=== PATIENT | female | born 1950 | race Caucasian/White ===

== ENCOUNTER 2019-02-14 10:32 | Emergency (ER) | payer MEDICARE, MEDICAID, SELFPAY ==
--- NOTE | ~2019-02-14 | XR_ITS ---
EXAMINATION: XR chest 2V EXAM DATE: 02/14/2019 11:00 INDICATION: Shortness of air. TECHNIQUE: Frontal and lateral projections of the chest obtained and reviewed. There is no prior janice dy for comparison. FINDINGS: There is patchy left-sided airspace disease, either edema or pneumonia. Please clinically correlate. Coronary artery stents identified. There is no pneumothorax suspected. There are no pleura l effusions. The cardiomediastinal silhouette is prominent but magnified on this AP technique. There are no osseous abnormalities identified. IMPRESSION: 1. Patchy left sided edema or pneumonia. Reviewed, dictated and finalized at location A. 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
[2019-02-14 10:31] VITALS: BP 154/62; PULSE 64; RESP 18; TEMP 36.6; O2SAT 92
--- NOTE | 2019-02-14 10:38 | ED.WOUNDLAC ---
HPI - Wound/Laceration General Chief Complaint: Wound/Laceration Stated Complaint: wound Time Seen by Provider: 02/14/19 10:38 Source: patient and EMS Mode of arrival: EMS Limitations: no limitations History of Present Illness HPI narrative: The pt is a 68 y/o female who presents to the ED, via EMS, c/o a RLE wound onset one week ago. Pt presents from [facility]. Per EMS, pt had a blister that was noticed while being bathed, but this popped over night. Pt reports RLE pain, but denies SOB, BLE edema, rhinorrhea, and cough. Pt has a PMHx of DM, heart murmur, and AFIB. EMS states that the pt has previously seen wound care for other wounds. Onset (ago): week(s) (1) Location: other (RLE) Extremity Location: Right: lower leg Place: other (Assisted living facility ([facility])) Associated symptoms: other (RLE pain, RLE blister (Resolved)) Related Data Home Medications Medication Instructions Recorded Confirmed alendronate 70 mg PO WEEKLY 02/14/19 amiodarone 200 mg PO DAILY 02/14/19 amlodipine 5 mg PO DAILY 02/14/19 benzonatate 200 mg PO TID PRN 02/14/19 clopidogrel 75 mg PO DAILY 02/14/19 ergocalciferol (vitamin D2) 50,000 unit PO WEEKLY 02/14/19 [Vitamin D2] ferrous sulfate 325 mg PO DAILY 02/14/19 furosemide 20 mg PO DAILY 02/14/19 gabapentin 300 mg PO TID 02/14/19 insulin lispro protamin-lispro ml SUBCUT BID 02/14/19 [Humalog Mix 75-25(U-100)Insuln] magnesium oxide 400 mg PO BID 02/14/19 omeprazole 40 mg PO DAILY 02/14/19 rivaroxaban [Xarelto] 20 mg PO QPM 02/14/19 rosuvastatin 40 mg PO DAILY 02/14/19 tizanidine 4 mg PO HS 02/14/19 tramadol 50 mg PO Q6H PRN 02/14/19 valsartan 320 mg PO DAILY 02/14/19 vitamin B complex [B tablet 02/14/19 Complex-Vitamin B12] Allergies Allergy/AdvReac Type Severity Reaction Status Date / Time No Known Allergies Allergy Verified 02/14/19 10:45 Review of Systems Review of Systems: All systems reviewed & are unremarkable except as noted in HPI and below ENT: Denies nasal discharge (Rhinorrhea) Cardiovascular: Cardiovascular: Denies edema (BLE) Respiratory: Respiratory: Denies cough and Denies dyspnea Musculoskeletal: Musculoskeletal: Reports other (RLE pain) Integumentary/Breasts: Skin/Breast: Reports wounds (RLE) and Reports other (RLE blister (Resolved)) [facility] Past Medical History Medical History (Updated 02/14/19 @ 13:21 by Wei Willett MD) Afib (Acute) Diabetes mellitus (Acute) Heart murmur (Acute) Surgical History Surgical History (Updated 02/14/19 @ 10:47 by Rangel Tai) No history of previous surgery (Acute) Social History Social History (Updated 02/14/19 @ 10:46 by Rangel Tai) Living arrangements: assisted living Additional living arrangements comments: Pt lives at the [facility]. Gender identity (if verbalized by the patient): Female Exam Narrative: Exam Narrative: GENERAL: Well-appearing, well-nourished, and in no acute distress. HEAD: Normocephalic, atraumatic. ENT: Mucous membranes moist. CHEST: Clear to auscultation. No respiratory distress. HEART: Regular rate and rhythm. Normal peripheral pulses. ABDOMEN: Soft, nontender, nondistended. EXTREMITIES: Normal range of motion. 2+ edema. Weeping ulceration of the right anterior hernandez, about 10 cm x 6cm, no purulence, no cellulitis. SKIN: Warm, dry, no rash. NEURO: Alert and oriented x3. Course Course Emergency Course: Patient informed of results. Discharge with doxycycline for pneumonia and skin coverage. Wound dressed. Recommend follow-up with PCP and wound care. Vital Signs Vital signs: Vital Signs Temperature 97.9 F 02/14/19 10:31 Pulse Rate 64 02/14/19 10:31 Respiratory Rate 18 02/14/19 10:31 Blood Pressure 154/62 H 02/14/19 10:31 Pulse Oximetry 92 L 02/14/19 10:31 Temperature 98.1 F 02/14/19 12:20 Pulse Rate 64 02/14/19 12:20 Respiratory Rate 20 02/14/19 12:20 Blood Pressure 145/70 H 11
[2019-02-14 11:51] LABS: Basophils Absolute Auto 0.1 K/mm3 (0.0-0.1); Eosinophils Absolute Auto 0.3 K/mm3 (0-0.3); Eosinophils Percent Auto 2.6 % (0-4.4); Hematocrit 44.5 % (37.0-47.0); Hemoglobin 13.5 g/dL (12.0-15.0); Immature Granulocyte Absolute 0.05 K/mm3 (0.00-0.031); Immature Granulocyte Percent A 0.5 % (0-0.5); Immature Platelet Fraction Pct 5.1 % (0.9-11.2); Lymphocytes Absolute Auto 1.36 K/mm3 (0.9-3.2); Lymphocytes Percent Auto 12.9 % (18.3-44.2); Mean Corpuscular HGB Conc 30.3 g/dl (32-36); Mean Corpuscular Hemoglobin 25.8 pg (26-34); Mean Corpuscular Volume 85.1 fl (80-100); Mean Platelet Volume 10.3 fl (7.4-10.4); Monocytes Absolute Auto 0.7 K/mm3 (0.1-0.6); Monocytes Percent Auto 6.6 % (2.6-8.5); Neutrophils Absolute Auto 8.1 K/mm3 (1.3-6.7); Neutrophils Percent Auto 76.4 % (45.5-73.1); Platelet Count Result 257 k/mm3 (150-375); Red Blood Count 5.23 M/mm3 (4.2-5.4); Red Cell Distribution Width 18.7 % (11.5-14.5); White Blood Count 10.5 K/mm3 (4.5-10.0)
[2019-02-14 12:00] LABS: Blood Urea Nitrogen 21 mg/dL (7-17); Calcium 9.7 mg/dL (8.4-10.2); Carbon Dioxide 31 mmol/L (22-30); Chloride 101 mmol/L (98-107); Estimated CRCL calculation 51 ml/min; Estimated Glomerular Filt Rate 50; Glucose 252 mg/dL (65-105); Potassium 4.3 mmol/L (3.4-5.0); Sodium 136 mmol/L (137-145)
[2019-02-14 12:14] LABS: NT Pro B Type Natriuretic Pept 184 PG/ML (5-100)
[2019-02-14 12:20] VITALS: BP 145/70; PULSE 64; RESP 20; TEMP 36.7; O2SAT 95
[2019-02-14 12:22] VITALS: O2SAT 95
[2019-02-14 13:53] VITALS: BP 142/88; PULSE 80; RESP 18; TEMP 36.9; O2SAT 99
== END 2019-02-14 13:55 | disposition home or self-care (01) ==
PROVIDERS: Emergency Provider Emergency Medicine; PCP Internal Medicine
DX: L98.491 Non-pressure chronic ulcer of skin of other sites limited to breakdown of skin (principal); J18.9 Pneumonia, unspecified organism; I48.91 Unspecified atrial fibrillation; E11.9 Type 2 diabetes mellitus without complications; Z79.4 Long term (current) use of insulin; Z79.01 Long term (current) use of anticoagulants
CPT/HCPCS: 36415; 71046; 80048; 83880; 85025; 99283

== ENCOUNTER 2019-12-11 16:14 | Inpatient (IN) | payer MEDICARE, MEDICAID, SELFPAY ==
--- NOTE | ~2019-12-11 | CT_ITS ---
EXAMINATION: CT abdomen pelvis wo con DATE: 12/11/2019 19:01 INDICATION: Abdominal pain. Nausea. TECHNIQUE: Computed tomography (CT) of the abdomen and pelvis was performed without intravenous contr ast. Automated exposure control and iterative reconstruction technique were employed. The dose-length product was 1496.00 mGy-cm. COMPARISON: CT abdomen and pelvis 07/20/2018 FINDINGS: The visualized portions of the lung bases demonstrate mild atelectasis. No pleural effusion . Cardiomegaly is noted. There are coronary artery calcifications. No pericardial effusion. The liver and spleen are normal. There are gallstones in the gallbladder, which is normal in size. The pancrea s, adrenal glands, and right kidney are normal. There is cortical thinning of left kidney. There is n o urolithiasis. There is a 7 mm cyst in left kidney. There is diverticulosis of the colon without jazz dence of diverticulitis. There are no dilated loops of bowel. The appendix is normal. There is an umb ilical hernia containing fat. There are no pathologically enlarged lymph nodes. There is no free intr aperitoneal fluid. There is lumbar levoscoliosis. There is severe thoracolumbar spondylosis. IMPRESSION: 1. Cholelithiasis. No evidence of acute cholecystitis. 2. Umbilical hernia containing fat. Reviewed, dictated and finalized at location A.
--- NOTE | ~2019-12-11 | XR_ITS ---
EXAMINATION: XR chest 1V portable DATE: 12/11/2019 17:22 INDICATION: Fever. TECHNIQUE: A single frontal view of the chest was obtained. COMPARISON: Chest 2 views 04/11/2019, CT abdomen and pelvis 07/12/2018 FINDINGS: There is no pneumonia, pleural effusion, or pneumothorax. Cardiomegaly is noted. IMPRESSION: 1. Cardiomegaly. Reviewed, dictated and finalized at location A. IMPRESSION: 1. Cardiomegaly.
--- NOTE | ~2019-12-11 | US_ITS ---
US right upper quadrant DATE: 12/12/2019 07:46 INDICATION: Right upper quadrant abdominal pain TECHNIQUE: Real-time imaging of liver, pancreas, gallbladder areas. Examination is limited due to bod y habitus and bowel interference COMPARISON: 12/11/2019 CT abdomen pelvis FINDINGS: The pancreatic tail is obscured by bowel gas. No hepatic space-occupying mass lesion is jazz dent. Normal hepatic portal venous flow direction. No hepatic space-occupying mass lesion is evident. There are small filling defects of the gallbladder, consistent with cholelithiasis. No gallbladder wa ll thickening. The common bile duct measures 4.9 mm, within normal limits. IMPRESSION: Cholelithiasis Reviewed, dictated and finalized at Location A. Reviewed, dictated and finalized at location A. IMPRESSION: Cholelithiasis
--- NOTE | ~2019-12-11 | XR_ITS ---
EXAMINATION: XR chest 1V portable DATE: 12/17/2019 05:41 INDICATION: Shortness of breath. TECHNIQUE: A single frontal view of the chest was obtained. COMPARISON: Chest single view 12/11/2019, CT abdomen and pelvis 12/11/2019 FINDINGS: There are airspace opacities in the mid and lower lung zones with a perihilar predominance. No pleural effusion or pneumothorax. Cardiomegaly is noted. IMPRESSION: 1. Airspace opacities in the mid and lower lung zones with a perihilar predominance, consistent with pneumonia versus pulmonary edema. 2. Cardiomegaly. Reviewed, dictated and finalized at location A. IMPRESSION: 1. Airspace opacities in the mid and lower lung zones with a perihilar predomin ance, consistent with pneumonia versus pulmonary edema. 2. Cardiomegaly.
[2019-12-11 16:26] VITALS: BP 146/93; PULSE 79; RESP 18; TEMP 37; O2SAT 89
[2019-12-11 16:30] VITALS: PULSE 78; RESP 20; O2SAT 95
--- NOTE | 2019-12-11 16:55 | ED.FEVER ---
HPI - Fever General Chief Complaint: Fever Stated Complaint: fever Source: patient and old records reviewed Mode of arrival: EMS Limitations: other (Poor historian) History of Present Illness HPI Narrative: 69-year-old female Presents from [facility] Complains of chills for about an hour She has nausea but has not vomited Was reported to be afebrile by the care home however temp per EMS and here are both normal She has no specific respiratory complaints but was said to have an oxygen requirement Her legs are wrapped due to sores per patient Appears to have a past medical history of coronary disease hypertension afib and type 2 diabetes [facility] paperwork indicates a DNR status Onset (ago): hour(s) Related Data Home Medications Medication Instructions Recorded Confirmed alendronate 70 mg tablet 70 mg PO WEEKLY 02/10/19 02/17/19 amlodipine 5 mg tablet 5 mg PO DAILY 02/10/19 02/17/19 clopidogrel 75 mg tablet 75 mg PO DAILY 02/10/19 02/17/19 ergocalciferol (vitamin D2) 1,250 50,000 unit PO MONTHLY 02/10/19 02/17/19 mcg (50,000 unit) capsule furosemide 20 mg tablet 20 mg PO QAM 02/10/19 02/17/19 gabapentin 300 mg capsule 300 mg PO TID 02/10/19 02/17/19 lancets #50 each 02/10/19 02/17/19 omeprazole 40 mg capsule,delayed 40 mg PO DAILY 02/10/19 02/17/19 release pen needle, diabetic 31 gauge x #30 each 02/10/19 02/17/19 1/ rivaroxaban 20 mg tablet 20 mg PO DAILY 02/10/19 02/17/19 rosuvastatin 40 mg tablet 40 mg PO DAILY 02/10/19 02/17/19 tramadol 50 mg tablet 50 mg PO Q6H PRN 02/10/19 02/17/19 alendronate 70 mg PO WEEKLY 02/14/19 amiodarone 200 mg PO DAILY 02/14/19 amlodipine 5 mg PO DAILY 02/14/19 benzonatate 200 mg PO TID PRN 02/14/19 clopidogrel 75 mg PO DAILY 02/14/19 ergocalciferol (vitamin D2) 50,000 unit PO WEEKLY 02/14/19 [Vitamin D2] ferrous sulfate 325 mg PO DAILY 02/14/19 furosemide 20 mg PO DAILY 02/14/19 gabapentin 300 mg PO TID 02/14/19 insulin lispro protamin-lispro ml SUBCUT BID 02/14/19 [Humalog Mix 75-25(U-100)Insuln] magnesium oxide 400 mg PO BID 02/14/19 omeprazole 40 mg PO DAILY 02/14/19 rivaroxaban [Xarelto] 20 mg PO QPM 02/14/19 rosuvastatin 40 mg PO DAILY 02/14/19 tizanidine 4 mg PO HS 02/14/19 tramadol 50 mg PO Q6H PRN 02/14/19 valsartan 320 mg PO DAILY 02/14/19 vitamin B complex [B tablet 02/14/19 Complex-Vitamin B12] insulin lispro protamine-lispro See Rx Instructions SUB-Q .COMPLEX 02/24/19 100 unit/mL (75-25) subcutaneous pen Allergies Allergy/AdvReac Type Severity Reaction Status Date / Time No Known Allergies Allergy Verified 07/14/19 13:26 Review of Systems Review of Systems: ROS unobtainable: Yes unobtainable due to mental status Constitutional: Constitutional: Reports chills, Reports fever(s), Denies headache(s) and Denies night sweats Eyes: Eyes: Denies loss of vision and Denies other visual disturbances ENT: Denies headache(s) and Denies hoarseness Cardiovascular: Cardiovascular: Denies leg edema, Denies palpitations and Denies dyspnea Respiratory: Respiratory: Reports dyspnea Gastrointestinal: Gastrointestinal: Denies abdominal pain, Denies diarrhea, Reports nausea and Denies vomiting Genitourinary: Genitourinary: Denies urinary frequency Musculoskeletal: Musculoskeletal: Denies abnormal gait, Denies deformity, Denies joint swelling, Denies muscle weakness and Denies numbness Integumentary/Breasts: Skin/Breast: Denies rash, Denies unusual bruising and Denies wounds Neurologic: Denies abnormal gait, Denies headache(s), Denies focal weakness, Denies loss of vision and Denies numbness Psychiatric: Psychiatric: Reports no additional psychiatric complaints Endocrine: Endocrine: Denies fatigue and Denies palpitations Hematologic/Lymphatic: Hematologic/Lymphatic: Denies easy bleeding and Denies easy bruising Allergic/Immunologic: Allergic/Immunologic: Denies wheezing PMFSH Social History Soci
[2019-12-11] MEDS: LACTATED RINGERS 1,000 ML 999 ML IV CONT (17:10)
[2019-12-11 17:13] LABS: Hematocrit 36.7 % (37.0-47.0); Hemoglobin 11.4 g/dL (12.0-15.0); Mean Corpuscular HGB Conc 31.1 g/dl (32-36); Mean Corpuscular Hemoglobin 26.5 pg (26-34); Mean Corpuscular Volume 85.3 fl (80-100); Mean Platelet Volume 11.1 fl (7.4-10.4); Platelet Count Result 317 k/mm3 (150-375); Red Cell Distribution Width 13.8 % (11.5-14.5); White Blood Count 20.1 K/mm3 (4.5-10.0)
[2019-12-11 17:25] LABS: Add Urine Microscopic? YES; Appearance Urine Clear (Clear); Bacteria Urine Trace /hpf; Bilirubin Urine Negative (Negative); Blood Urine 1+ (Negative); Color Urine Straw (Yellow); Glucose Urine UA Negative (Negative); INR 1.4; Ketones Urine Negative (Negative); Leukocyte Esterase Ur Negative LEU/UL (Negative); Mucus Urine Rare /lpf; Nitrate Urine Negative (Negative); Protein Urine 2+ mg/dL (Negative); Prothrombin Time 16.8 Seconds (11.1-14.7); RBC Urine 0-2 /hpf (0-2); Specific Grav Ur 1.011 (1.001-1.035); Squamous Epithelial Cell Urine Rare /hpf (Few); Urobilinogen Urine Negative mg/dL (<2.0); WBC Urine 0-3 /hpf
[2019-12-11 17:28] LABS: Alanine Aminotransferase 13 U/L (4-35); Albumin Level 4.2 g/dL (3.5-5.1); Alkaline Phosphatase 111 U/L (38-126); Anion Gap 9 mmol/L (8-16); Aspartate Amino Transferase 24 U/L (14-36); Bilirubin,Total 0.6 mg/dL (0.2-1.3); Blood Urea Nitrogen 46 mg/dL (7-17); Calcium 10.3 mg/dL (8.4-10.2); Carbon Dioxide 30 mmol/L (22-30); Chloride 95 mmol/L (98-107); Estimated CRCL calculation 29 ml/min; Estimated Glomerular Filt Rate 30; Glucose 236 mg/dL (65-105); Potassium 4.4 mmol/L (3.4-5.0); Sodium 134 mmol/L (137-145)
[2019-12-11 17:38] LABS: Band Neutrophils Percent 1 % (0-6); Monocytes Percent Manual 6 % (3-9); Neutrophils Absolute Manual 17.48 K/mm3 (1.7-7.2); Neutrophils Percent Manual 86 % (46-73); Platelet Estimate Adequate (Adequate); Total Cells Counted 100
[2019-12-11 17:39] LABS: Hypochromasia 1+ (NORMAL)
[2019-12-11 17:53] LABS: Lactic Acid Reflex 1.7 mmol/L (0.7-2.1)
[2019-12-11 18:25] VITALS: BP 187/76; PULSE 81; RESP 18; O2SAT 95
[2019-12-11 20:00] VITALS: BP 200/96; PULSE 76; RESP 26; O2SAT 93
[2019-12-11 22:20] VITALS: BMI 47.8
--- NOTE | 2019-12-11 22:20 | ADMGEN ---
This patient, Estefanía James, was admitted to [facility] Surg Room 329-01. Patient/family oriented to hospital policies and general routines including ID bracelet, bed and alarms, visiting hours, pain management, procedures, bathroom and other care routines, personal items, smoking policy, room service/diet, and visiting hours. Valuables list has been completed. Information on how to activate the Rapid Response Team has been discussed. Patient/Family are encouraged to report perceived risks to care and to ask questions if they do not understand what they are told or what they should do.
[2019-12-11] MEDS: metroNIDAZOLE 500 MG/ISO 100ML 500 MG/100 ML BAG 100 MG IVPB (22:21)
[2019-12-11 23:33] VITALS: BP 178/51; PULSE 79; RESP 18; O2SAT 95
[2019-12-12] VITALS (12 sets, daily range): BP systolic 102–156; BP diastolic 44–58; PULSE 48–69; RESP 16–20; TEMP 36.8–38.8; O2SAT 91–97
--- NOTE | 2019-12-12 00:28 | PM.IMHP ---
H&P: HPI History of Present Illness Date/Time: 12/11/19 23:40 Chief complaint: Fever, low oxygen saturations Narrative: Estefanía James is a 69 year old female with a past medical history of diabetes mellitus, obesity, hypertension, and chronic venous stasis ulcers who presented to the ER from [facility] via EMS due to fever and low oxygen saturations. Per care home report the patient had temperature of a 102.5? and was found to have oxygen saturations in the upper 80s. The patient was placed on 2 L nasal cannula with improvement in oxygen saturations up to 92%. The patient reports that she has been having a mild nonproductive cough today prior to coming to the ER but has had no further cough since presentation. She was having some mild nausea prior to transport to the ER but has had no vomiting. She denies having any abdominal pain but on exam did have some mild right upper quadrant tenderness to palpation. Her main complaint is her chronic low back pain that is unchanged from baseline. And her back pain is reproducible to palpation. She denies any new back injury. Her chronic venous stasis ulcers appear stable had no evidence of acute infection. She denies any chest pain or increased shortness of breath. She reports that her last bowel movement was a day or 2 ago and was large and normally formed. She denies any dysuria but has chronic urinary frequency and frequent episodes of incontinence. She has tested twice weekly for COVID at the care home and has been negative. Influenza swab performed in the ER was negative. Review of Systems Review of Systems: Narrative: 12 systems were reviewed with pertinent positives and negatives per HPI. Except as documented in the HPI, all other systems were reviewed and are negative. [facility] Past Medical History Medical History (Updated 12/12/19 @ 01:35 by Ilsa Jimenez DO) Arthritis CAD (coronary artery disease) Chronic kidney disease, stage 3 with baseline creatinine between 1 and 1.2 Chronic lower back pain Chronic lung disease PFTs June 2017 consistent with early interstitial lung disease, emphysema, pulmonary vascular disease or questionable drug toxicity Depression Diabetes mellitus hemoglobin A1c 6.23 September 2018 Diabetic nephropathy DVT (deep venous thrombosis) on chronic anticoagulation with Xarelto GERD (gastroesophageal reflux disease) Heart attack STEMI 2009 Heart murmur History of blood transfusion U[place] (hard of hearing) Hyperlipidemia Hypothyroidism Intellectual disability Morbid obesity Overflow stress urinary incontinence in female Paroxysmal atrial fibrillation on chronic anticoagulation with Xarelto Peripheral neuropathy PVD (peripheral vascular disease) Right-sided Tan's palsy Valvular heart disease Vitamin D deficiency (10/30/18) Wears glasses Surgical History Surgical History (Updated 12/12/19 @ 01:25 by Ilsa Jimenez DO) H/O bilateral cataract extraction H/O knee surgery H/O tubal ligation History of appendectomy History of cardiac cath stent 2009 with repeat cardiac catheterization April 2016 demonstrating recess stenosis of proximal LAD for which showed patient had another drug-eluting stent placed History of hysterectomy with oophorectomy with right oophorectomy March 2017 due to postmenopausal bleeding, previous left oophorectomy many years before that Family History Family History Father Acute myocardial infarction, Onset Age: 73 Mother Brain cancer Rheumatoid arthritis Sibling Diabetes mellitus Breast cancer Heart disease Social History Social History (Updated 12/12/19 @ 00:45 by Ilsa Jimenez DO) Social History: Primary care physician: Dr. Jake Cruz long term physician: Dr. Brooklyn Becerra Code status: DNR /DNI Surrogate decision maker: Sister Claritza Meredith Smoking status: Former smoker
[2019-12-12] MEDS: LACTATED RINGERS 1,000 ML 125 ML IV CONT ×2 (01:03→13:05)
[2019-12-12] MEDS: GABAPENTIN 300 MG CAPSULE PO ×4 (01:03→17:11)
[2019-12-12] MEDS: ACETAMINOPHEN 325 MG TABLET 650 MG PO ×2 (01:05→03:54)
[2019-12-12 01:21] LABS: Glucose Point of Care 313 (65-105)
[2019-12-12] MEDS: LEVOTHYROXINE SODIUM 75 MCG TABLET PO (06:15)
[2019-12-12 06:20] LABS: Basophils Absolute Auto 0.1 K/mm3 (0.0-0.1); Basophils Percent Auto 0.5 % (0.2-1.2); Eosinophils Absolute Auto 0.1 K/mm3 (0-0.3); Eosinophils Percent Auto 0.3 % (0-4.4); Hematocrit 31.3 % (37.0-47.0); Hemoglobin 9.8 g/dL (12.0-15.0); Immature Granulocyte Absolute 0.31 K/mm3 (0.00-0.031); Immature Granulocyte Percent A 1.6 % (0-0.5); Lymphocytes Absolute Auto 0.72 K/mm3 (0.9-3.2); Lymphocytes Percent Auto 3.8 % (18.3-44.2); Mean Corpuscular HGB Conc 31.3 g/dl (32-36); Mean Corpuscular Hemoglobin 26.3 pg (26-34); Mean Corpuscular Volume 84.1 fl (80-100); Mean Platelet Volume 11.3 fl (7.4-10.4); Monocytes Absolute Auto 1.2 K/mm3 (0.1-0.6); Monocytes Percent Auto 6.3 % (2.6-8.5); Neutrophils Absolute Auto 16.7 K/mm3 (1.3-6.7); Neutrophils Percent Auto 87.5 % (45.5-73.1); Platelet Count Result 266 k/mm3 (150-375); Red Blood Count 3.72 M/mm3 (4.2-5.4); Red Cell Distribution Width 13.9 % (11.5-14.5); White Blood Count 19.1 K/mm3 (4.5-10.0)
[2019-12-12 06:36] LABS: Anion Gap 5 mmol/L (8-16); Blood Urea Nitrogen 40 mg/dL (7-17); Calcium 9.5 mg/dL (8.4-10.2); Carbon Dioxide 29 mmol/L (22-30); Chloride 100 mmol/L (98-107); Estimated CRCL calculation 36 ml/min; Estimated Glomerular Filt Rate 32; Glucose 199 mg/dL (65-105); Potassium 4.3 mmol/L (3.4-5.0); Sodium 134 mmol/L (137-145)
[2019-12-12] MEDS: metroNIDAZOLE 500 MG/ISO 100ML 500 MG/100 ML BAG 100 MG IVPB ×4 (06:45→23:47)
[2019-12-12] MEDS: HYDROcodone/acetaminophen (*CRX) 5-325 MG TABLET 1 TAB PO ×2 (08:23→17:08)
[2019-12-12] MEDS: BENZONATATE 100 MG CAPSULE 200 MG PO (08:24)
[2019-12-12] MEDS: CLOPIDOGREL BISULFATE 75 MG TABLET PO (08:26)
[2019-12-12] MEDS: PANTOPRAZOLE SOD SESQUIHYDRATE 20 MG TAB PO (08:26)
[2019-12-12] MEDS: CYANOCOBALAMIN 1,000 MCG TABLET 1000 MCG PO (08:26)
[2019-12-12] MEDS: METOCLOPRAMIDE HCL 5 MG TABLET PO ×3 (08:26→17:11)
[2019-12-12] MEDS: VALSARTAN 160 MG TABLET 320 MG PO (08:27)
[2019-12-12] MEDS: FERROUS SULFATE 324 MG TABLET PO (08:27)
[2019-12-12] MEDS: ROSUVASTATIN 10 MG TABLET 40 MG PO (08:27)
[2019-12-12] MEDS: DOCUSATE SODIUM 100 MG CAPSULE 200 MG PO (08:28)
[2019-12-12] MEDS: FLUTICASONE PROPIONATE 0.05% NA SPR 16 GM BTL (*BKC) 2 SPRAY NASAL (08:28)
[2019-12-12] MEDS: MAGNESIUM OXIDE 400 MG TABLET PO ×2 (08:28→17:11)
[2019-12-12] MEDS: AMIODARONE HCL 200 MG TABLET PO (08:29)
[2019-12-12] MEDS: amLODIPine BESYLATE 5 MG TABLET PO (08:30)
[2019-12-12 08:54] LABS: Glucose Point of Care 160 (65-105)
[2019-12-12 12:42] LABS: Glucose Point of Care 214 (65-105)
[2019-12-12] MEDS: INSULIN ASPART (*BKC) 100 UNITS/ML SUB-Q (12:57)
[2019-12-12 13:52] LABS: SARS-CoV-2 RNA PCR Negative
--- NOTE | 2019-12-12 13:59 | PM.IMPN ---
Progress Note: A&P Assessment and Plan (1) Bacteremia: Code(s): R78.81 - Bacteremia Status: Acute Assessment and Plan: Preliminary report is positive for gram positive cocci in chains Currently on Zosyn Will repeat blood cx in am Will obtain 2DECHO (2) Diabetes mellitus with hyperglycemia: Code(s): E11.65 - Type 2 diabetes mellitus with hyperglycemia Status: Acute Assessment and Plan: Continue insulin Carb consistent diet ISS (3) Hypoxia: Code(s): R09.02 - Hypoxemia Status: Acute Assessment and Plan: Likely secondary to restrictive lung disease. Supportive care Covid 19 has been ruled out (4) Chronic cutaneous venous stasis ulcer: Code(s): I83.009 - Varicose veins of unspecified lower extremity with ulcer of unspecified site; L97.909 - Non-pressure chronic ulcer of unspecified part of unspecified lower leg with unspecified severity Status: Acute Assessment and Plan: Local care Wound care consult (5) Fever: Code(s): R50.9 - Fever, unspecified Status: Acute Assessment and Plan: Afebrile now Continue to monitor temperature curve (6) Leukocytosis: Code(s): D72.829 - Elevated white blood cell count, unspecified Status: Acute Assessment and Plan: Likely secondary to infection Patient with chronic b/l le ulcers which is a potential source and entry for pathogens Wound care consult Currently on Zosyn Preliminary Blood cx with gram positive cocci in chains suspect strep (7) ELIANE (acute kidney injury): Code(s): N17.9 - Acute kidney failure, unspecified Status: Acute Assessment and Plan: Minimally increase from patient's baseline Continue to monitor Daily labs (8) Bilateral lower extremity edema: Code(s): R60.0 - Localized edema Status: Acute Assessment and Plan: Will benefit form John wraps Chronic venous stasis (9) Chronic pain of both knees: Code(s): M25.561 - Pain in right knee; M25.562 - Pain in left knee; G89.29 - Other chronic pain Status: Acute Assessment and Plan: Continue home meds (10) Essential (primary) hypertension: Code(s): I10 - Essential (primary) hypertension Status: Acute Assessment and Plan: Continue home meds Well controlled (11) Type 2 diabetes mellitus with diabetic polyneuropathy: Code(s): E11.42 - Type 2 diabetes mellitus with diabetic polyneuropathy Status: Acute Assessment and Plan: Accuchecks achs ISS Home insulin re started Carb consistent diet (12) Pure hypercholesterolemia: Code(s): E78.00 - Pure hypercholesterolemia, unspecified Status: Acute Assessment and Plan: Stable Continue to monitor (13) Type 2 diabetes mellitus with complication, with long-term current use of insulin: Code(s): E11.8 - Type 2 diabetes mellitus with unspecified complications; Z79.4 - penitentiary (current) use of insulin Status: Acute Assessment and Plan: Carb consistent diet (14) Hypercholesterolemia: Code(s): E78.00 - Pure hypercholesterolemia, unspecified Status: Acute Assessment and Plan: Stable (15) Chronic GERD: Code(s): K21.9 - Gastro-esophageal reflux disease without esophagitis Status: Acute Assessment and Plan: Stable No dyspepsia Continue to monitor (16) Hypertension: Code(s): I10 - Essential (primary) hypertension Status: Acute Assessment and Plan: Stable Continue home meds Continue to monitor (17) Paroxysmal A-fib: Code(s): I48.0 - Paroxysmal atrial fibrillation Status: Acute Assessment and Plan: Stable Rate control Subjective Date/time seen: 12/12/19 13:59 In bed chronically ill looking. Review of Systems Review of Systems: Narrative: No complains at the present time denies pain. Constitutional: Comments: States that had some chills. ENT:
[2019-12-12 16:41] LABS: Glucose Point of Care 171 (65-105)
[2019-12-12] MEDS: RIVAROXABAN 20 MG TABLET PO (17:12)
[2019-12-12 22:16] LABS: Glucose Point of Care 251 (65-105)
[2019-12-13] MEDS: LACTATED RINGERS 1,000 ML 125 ML IV CONT ×2 (04:52→15:55)
[2019-12-13] MEDS: HYDROcodone/acetaminophen (*CRX) 5-325 MG TABLET 1 TAB PO ×3 (05:23→20:46)
[2019-12-13 05:58] VITALS: BP 165/55; PULSE 81; RESP 20; TEMP 36.7; O2SAT 90
[2019-12-13] MEDS: metroNIDAZOLE 500 MG/ISO 100ML 500 MG/100 ML BAG 100 MG IVPB ×3 (06:19→18:54)
[2019-12-13] MEDS: LEVOTHYROXINE SODIUM 75 MCG TABLET PO (06:35)
[2019-12-13 08:30] LABS: Glucose Point of Care 166 (65-105)
[2019-12-13] MEDS: ROSUVASTATIN 10 MG TABLET 40 MG PO (08:49)
[2019-12-13] MEDS: CYANOCOBALAMIN 1,000 MCG TABLET 1000 MCG PO (08:49)
[2019-12-13] MEDS: CLOPIDOGREL BISULFATE 75 MG TABLET PO (08:50)
[2019-12-13] MEDS: DOCUSATE SODIUM 100 MG CAPSULE 200 MG PO (08:50)
[2019-12-13] MEDS: VALSARTAN 160 MG TABLET 320 MG PO (08:50)
[2019-12-13] MEDS: FERROUS SULFATE 324 MG TABLET PO (08:50)
[2019-12-13] MEDS: PANTOPRAZOLE SOD SESQUIHYDRATE 20 MG TAB PO (08:50)
[2019-12-13] MEDS: METOCLOPRAMIDE HCL 5 MG TABLET PO ×3 (08:50→17:51)
[2019-12-13] MEDS: MAGNESIUM OXIDE 400 MG TABLET PO ×2 (08:50→17:51)
[2019-12-13] MEDS: GABAPENTIN 300 MG CAPSULE PO ×3 (08:50→17:51)
[2019-12-13 08:51] VITALS: PULSE 72
[2019-12-13] MEDS: AMIODARONE HCL 200 MG TABLET PO (08:51)
[2019-12-13] MEDS: amLODIPine BESYLATE 5 MG TABLET PO (08:51)
[2019-12-13] MEDS: FLUTICASONE PROPIONATE 0.05% NA SPR 16 GM BTL (*BKC) 2 SPRAY NASAL (08:51)
[2019-12-13 13:04] LABS: Glucose Point of Care 248 (65-105)
[2019-12-13] MEDS: INSULIN ASPART (*BKC) 100 UNITS/ML SUB-Q ×2 (13:09→17:56)
[2019-12-13 14:00] VITALS: BP 151/76; PULSE 73; RESP 20; TEMP 36.9; O2SAT 90
--- NOTE | 2019-12-13 14:06 | PM.IMPN ---
Progress Note: A&P Assessment and Plan (1) Bacteremia: Code(s): R78.81 - Bacteremia Status: Acute Assessment and Plan: Afebrile Will repeat blood cx in am Continue Zosyn Awaiting 2DECHO (2) Diabetes mellitus with hyperglycemia: Code(s): E11.65 - Type 2 diabetes mellitus with hyperglycemia Status: Acute Assessment and Plan: Continue to monitor Accuchecks ACHS Carb consistent diet ISS (3) Hypoxia: Code(s): R09.02 - Hypoxemia Status: Acute Assessment and Plan: Patient had sleep study done awaiting results Continue oxygen by MD (4) Chronic cutaneous venous stasis ulcer: Code(s): I83.009 - Varicose veins of unspecified lower extremity with ulcer of unspecified site; L97.909 - Non-pressure chronic ulcer of unspecified part of unspecified lower leg with unspecified severity Status: Acute Assessment and Plan: Does not look infected Local care Wound care consult (5) Fever: Code(s): R50.9 - Fever, unspecified Status: Acute Assessment and Plan: Afebrile for over 24 hours. Continue antibiotics. (6) ELIANE (acute kidney injury): Code(s): N17.9 - Acute kidney failure, unspecified Status: Acute Assessment and Plan: Continue to monitor Daily labs (7) Leukocytosis: Code(s): D72.829 - Elevated white blood cell count, unspecified Status: Acute Assessment and Plan: Trending down Clinically much improved from initial presentation. Will repeat labs in am (8) Type 2 diabetes mellitus with diabetic polyneuropathy: Code(s): E11.42 - Type 2 diabetes mellitus with diabetic polyneuropathy Status: Acute Assessment and Plan: Unchanged Continue to monitor (9) Morbid (severe) obesity due to excess calories: Code(s): E66.01 - Morbid (severe) obesity due to excess calories Status: Acute Assessment and Plan: Calorie restricted diet. (10) Paroxysmal A-fib: Code(s): I48.0 - Paroxysmal atrial fibrillation Status: Acute Assessment and Plan: Rate controlled Stable Amiodarone Plavix (11) Chronic GERD: Code(s): K21.9 - Gastro-esophageal reflux disease without esophagitis Status: Acute Assessment and Plan: Stable Continue to monitor ppi (12) Hypertension: Code(s): I10 - Essential (primary) hypertension Status: Acute Assessment and Plan: Not well controlled at the present time. On Amlodipine + Valsartan Subjective Date/time seen: 12/13/19 14:06 Patient seen and examined earlier in the day. Review of Systems Review of Systems: Narrative: No new issues, states that feels better from the time she came in the hosptial. Constitutional: Constitutional: Reports as per HPI and Reports no additional constitutional complaints ENT: Reports system reviewed and no additional complaints, except as documented and Reports as per HPI Cardiovascular: Cardiovascular: Reports as per HPI and Reports no additional cardiovascular complaints Respiratory: Respiratory: Reports as per HPI and Reports no additional respiratory complaints Gastrointestinal: Gastrointestinal: Reports as per HPI and Reports no additional gastrointestinal complaints Musculoskeletal: Musculoskeletal: Reports no additional musculoskeletal complaints and Reports as per HPI Neurologic: Reports system reviewed and no additional complaints, except as documented and Reports as per HPI Exam Narrative: Exam Narrative: Morbidly obese, sitting in bed NAD. Const: General: cooperative, comfortable and no acute distress Nutritional Appearance: overweight Orientation/consciousness: patient oriented x3 HENMT: Head: normal to inspection Ears: hearing grossly normal bilaterally General nose exam: Normal external nose present Face and sinus: normal facial exam Eyes: General: appearance normal, both eyes and all related structures Pupils: Equal, round a
[2019-12-13] MEDS: RIVAROXABAN 20 MG TABLET PO (17:51)
[2019-12-13 18:30] LABS: Glucose Point of Care 253 (65-105)
[2019-12-13 20:34] VITALS: O2SAT 90
[2019-12-13 21:04] LABS: Glucose Point of Care 206 (65-105)
[2019-12-13 22:00] VITALS: BP 159/60; PULSE 71; RESP 20; TEMP 37.6; O2SAT 92
[2019-12-14] MEDS: metroNIDAZOLE 500 MG/ISO 100ML 500 MG/100 ML BAG 100 MG IVPB (00:17)
[2019-12-14] MEDS: LACTATED RINGERS 1,000 ML 125 ML IV CONT ×3 (00:54→20:11)
[2019-12-14 02:00] VITALS: TEMP 36.9
[2019-12-14] MEDS: HYDROcodone/acetaminophen (*CRX) 5-325 MG TABLET 1 TAB PO ×3 (03:11→16:52)
[2019-12-14] MEDS: LEVOTHYROXINE SODIUM 75 MCG TABLET PO (05:59)
[2019-12-14 06:00] VITALS: BP 133/56; PULSE 64; RESP 16; TEMP 37.3; O2SAT 94
[2019-12-14 08:20] VITALS: O2SAT 90
[2019-12-14 08:24] LABS: Basophils Absolute Auto 0.1 K/mm3 (0.0-0.1); Basophils Percent Auto 0.6 % (0.2-1.2); Eosinophils Absolute Auto 0.1 K/mm3 (0-0.3); Eosinophils Percent Auto 0.9 % (0-4.4); Immature Granulocyte Absolute 0.21 K/mm3 (0.00-0.031); Immature Granulocyte Percent A 1.7 % (0-0.5); Lymphocytes Absolute Auto 0.94 K/mm3 (0.9-3.2); Lymphocytes Percent Auto 7.4 % (18.3-44.2); Mean Corpuscular Hemoglobin 26.3 pg (26-34); Mean Corpuscular Volume 84.8 fl (80-100); Mean Platelet Volume 11.1 fl (7.4-10.4); Monocytes Absolute Auto 1.2 K/mm3 (0.1-0.6); Monocytes Percent Auto 9.3 % (2.6-8.5); Neutrophils Absolute Auto 10.2 K/mm3 (1.3-6.7); Neutrophils Percent Auto 80.1 % (45.5-73.1); Platelet Count Result 230 k/mm3 (150-375); Red Blood Count 3.42 M/mm3 (4.2-5.4); Red Cell Distribution Width 14.2 % (11.5-14.5); White Blood Count 12.7 K/mm3 (4.5-10.0)
[2019-12-14 08:38] LABS: Anion Gap 5 mmol/L (8-16); Blood Urea Nitrogen 21 mg/dL (7-17); Calcium 9.1 mg/dL (8.4-10.2); Carbon Dioxide 28 mmol/L (22-30); Chloride 102 mmol/L (98-107); Estimated CRCL calculation 47 ml/min; Estimated Glomerular Filt Rate 45; Glucose 163 mg/dL (65-105); Potassium 4.3 mmol/L (3.4-5.0); Sodium 135 mmol/L (137-145)
[2019-12-14 08:42] LABS: Glucose Point of Care 149 (65-105)
[2019-12-14 08:47] VITALS: PULSE 72
[2019-12-14] MEDS: AMIODARONE HCL 200 MG TABLET PO (08:47)
[2019-12-14] MEDS: GABAPENTIN 300 MG CAPSULE PO ×3 (08:47→16:46)
[2019-12-14] MEDS: CYANOCOBALAMIN 1,000 MCG TABLET 1000 MCG PO (08:47)
[2019-12-14] MEDS: FERROUS SULFATE 324 MG TABLET PO (08:48)
[2019-12-14] MEDS: TIZANIDINE HCL 4 MG TABLET PO (08:48)
[2019-12-14] MEDS: ROSUVASTATIN 10 MG TABLET 40 MG PO (08:49)
[2019-12-14] MEDS: CLOPIDOGREL BISULFATE 75 MG TABLET PO (08:50)
[2019-12-14] MEDS: METOCLOPRAMIDE HCL 5 MG TABLET PO ×3 (08:50→16:47)
[2019-12-14] MEDS: MAGNESIUM OXIDE 400 MG TABLET PO ×2 (08:50→16:46)
[2019-12-14] MEDS: VALSARTAN 160 MG TABLET 320 MG PO (08:50)
[2019-12-14] MEDS: amLODIPine BESYLATE 5 MG TABLET PO (08:51)
[2019-12-14] MEDS: FLUTICASONE PROPIONATE 0.05% NA SPR 16 GM BTL (*BKC) 2 SPRAY NASAL (08:51)
[2019-12-14] MEDS: PANTOPRAZOLE SOD SESQUIHYDRATE 20 MG TAB PO (08:51)
[2019-12-14] MEDS: DOCUSATE SODIUM 100 MG CAPSULE 200 MG PO (08:53)
--- NOTE | 2019-12-14 11:56 | PM.IMPN ---
Progress Note: A&P Assessment and Plan (1) Bacteremia: Code(s): R78.81 - Bacteremia Status: Acute Assessment and Plan: Repeated blood cx today On Ampicillin ID consulted Appreciate ID not Awaiting 2DECHO (2) Diabetes mellitus with hyperglycemia: Code(s): E11.65 - Type 2 diabetes mellitus with hyperglycemia Status: Acute Assessment and Plan: Continue insulin regimen + ISS Accuchecks achs (3) Hypoxia: Code(s): R09.02 - Hypoxemia Status: Acute Assessment and Plan: On supplemental O2 Wean off of oxygen Awaiting sleep study (4) Chronic cutaneous venous stasis ulcer: Code(s): I83.009 - Varicose veins of unspecified lower extremity with ulcer of unspecified site; L97.909 - Non-pressure chronic ulcer of unspecified part of unspecified lower leg with unspecified severity Status: Acute Assessment and Plan: LLE resolved RLE skin break down but no ulcer Local care Not infected. (5) Fever: Code(s): R50.9 - Fever, unspecified Status: Acute Assessment and Plan: Afebrile Continue to monitor Temp curve. (6) ELIANE (acute kidney injury): Code(s): N17.9 - Acute kidney failure, unspecified Status: Acute Assessment and Plan: Continue to monitor Bun/Cr. Slight improvement from presentation Continue to monitor (7) Leukocytosis: Code(s): D72.829 - Elevated white blood cell count, unspecified Status: Acute Assessment and Plan: Improved. (8) Chronic pain of both knees: Code(s): M25.561 - Pain in right knee; M25.562 - Pain in left knee; G89.29 - Other chronic pain Status: Acute Assessment and Plan: Tylenol prn Likely OA (9) Essential (primary) hypertension: Code(s): I10 - Essential (primary) hypertension Status: Acute Assessment and Plan: Continue to monitor Well controlled (10) shelter (current) use of insulin: Code(s): Z79.4 - intermodal truck driver (current) use of insulin Status: Acute Assessment and Plan: Continue home regimen + ISS Carb consistent diet (11) Morbid (severe) obesity due to excess calories: Code(s): E66.01 - Morbid (severe) obesity due to excess calories Status: Acute Assessment and Plan: Life style and diet modifications. (12) Chronic GERD: Code(s): K21.9 - Gastro-esophageal reflux disease without esophagitis Status: Acute Assessment and Plan: Continue PPI (13) Paroxysmal A-fib: Code(s): I48.0 - Paroxysmal atrial fibrillation Status: Acute Assessment and Plan: On Amiodarone and Plavix. Rate controlled Subjective Date/time seen: 12/14/19 11:56 No new issues overnight Afebrile. Review of Systems Review of Systems: Narrative: States that had a good night rest no new issues. Constitutional: Comments: No fevers, no rigors, no chills. Eyes: Comments: No vision changes. ENT: Comments: no ear ache, no hearing difficulty Cardiovascular: Comments: No chest pain. Respiratory: Comments: No ob, cough or sputum production. Gastrointestinal: Comments: no n/v/abdominal pain. Musculoskeletal: Comments: B/L LE swelling. Integumentary/Breasts: Comments: B/L LE chronic skin changes. Neurologic: Comments: No motor or sensory deficit. Exam Narrative: Exam Narrative: Morbidly obese, in bed NAD Const: General: no acute distress Other: Generalized pallor, NAD. HENMT: Head: normocephalic Ears: hearing grossly normal bilaterally General nose exam: Normal external nose present Face and sinus: normal facial exam Mouth: Yes Normal oral and palatal mucosa present Eyes: General: appearance normal, both eyes and all related structures Pupils: Equal, round and reactive pupils present EOM: EOMs intact bilaterally Neck: Neck: full ROM, no lymphadenopathy and no JVD Resp: Auscultation: clear to auscultation bilaterally Cardio: Jugular venous distension: n
[2019-12-14] MEDS: INSULIN ASPART (*BKC) 100 UNITS/ML SUB-Q ×2 (12:16→17:43)
[2019-12-14 12:38] LABS: Glucose Point of Care 292 (65-105)
--- NOTE | 2019-12-14 13:44 | WPDINFPN2 ---
Progress Note: A&P Assessment and Plan (1) Bacteremia: Code(s): R78.81 - Bacteremia Status: Acute Assessment and Plan: Strep bacteremia with infection, RLE skin source REC Ampicillin #1 and f/u Subjective Date/time seen: 12/14/19 13:44 Objective Data Vital Signs Vital Signs: Vital Signs - 24 hr 12/13/19 14:00 12/13/19 20:34 12/13/19 22:00 Temperature 36.9 C 37.6 C Pulse Rate 73 71 Respiratory Rate 20 20 Blood Pressure 151/76 H 159/60 H Pulse Oximetry 90 90 92 12/14/19 02:00 12/14/19 06:00 12/14/19 08:20 Temperature 36.9 C 37.3 C Pulse Rate 64 Respiratory Rate 16 Blood Pressure 133/56 L Pulse Oximetry 94 90 12/14/19 08:47 Temperature Pulse Rate 72 Respiratory Rate Blood Pressure Pulse Oximetry Intake/Output Intake/Output: Intake & Output 12/11/19 12/12/19 12/13/19 12/14/19 23:59 23:59 23:59 23:59 Intake Total 1050 3180 4410 1570 Output Total 100 750 300 Balance 950 2430 4410 1270 Meds/Results Medications: Active Medications Generic Name Dose Route Start Last Admin Trade Name Freq PRN Reason Stop Dose Admin Acetaminophen 650 mg 12/11/19 21:21 12/12/19 03:54 Tylenol Tablet PO 650 mg Q4H PRN Administration Mild Pain (1-3) or Fever Hydrocodone Bitart/Acetaminophen 1 tab 12/12/19 00:24 12/14/19 08:32 [place] 5-325 Mg PO 1 tab QID PRN Administration pain 7-10 Albuterol 4 puff 12/11/19 16:34 Proventil Hfa INHALATION Q1HR PRN Shortness Of Breath Amiodarone HCl 200 mg 12/12/19 08:00 12/14/19 08:47 Pacerone PO 200 mg DAILY@0800 NIKOS Administration Amlodipine Besylate 5 mg 12/12/19 09:00 12/14/19 08:51 Norvasc PO 5 mg DAILY NIKOS Administration Benzonatate 200 mg 12/12/19 00:24 12/12/19 08:24 Tessalon Perles PO 200 mg TID PRN Administration Cough Calcium Carbonate 500 mg 12/12/19 09:00 12/14/19 08:50 Os-Ric 500 +D Tablet PO 01/11/20 09:01 500 mg BID NIKOS Administration Clopidogrel Bisulfate 75 mg 12/12/19 09:00 12/14/19 08:50 Plavix PO 75 mg DAILY NIKOS Administration Cyanocobalamin 1,000 mcg 12/12/19 09:00 12/14/19 08:47 Vitamin B-12 Tab PO 01/11/20 09:01 1,000 mcg DAILY NIKOS Administration Docusate Sodium 200 mg 12/12/19 09:00 12/14/19 08:53 Colace Capsule PO 200 mg DAILY NIKOS Administration Ferrous Sulfate 324 mg 12/12/19 08:00 12/14/19 08:48 Ferrous Sulfate PO 324 mg DAILY@0800 NIKOS Administration Fluticasone Propionate 2 spray 12/12/19 09:00 12/14/19 08:51 Flonase 0.05% Nasal [place] NASAL 2 spray DAILY NIKOS Administration Gabapentin 300 mg 12/12/19 00:25 12/14/19 12:10 Neurontin PO 300 mg TID NIKOS Administration Glucagon 1 mg 12/11/19 21:21 Glucagon For Inj IM PRN PRN Hypoglycemia Protocol Glucose 15 gm 12/11/19 21:21 Glutose 15 PO PRN PRN Hypoglycemia Protocol Hydralazine HCl 10 mg 12/11/19 22:25 Apresoline Hcl Inj IV PUSH Q4H PRN SBP greater than 160 Lactated Ringer's 1,000 mls @ 125 mls/hr 12/11/19 21:25 12/14/19 09:47 Lr - Lactated Ringers Iv IV CONT 125 mls/hr .Q8H [facility] Administration Ceftriaxone Sodium/Dextrose 1 gm in 50 mls @ 100 mls/hr 12/12/19 18:00 12/13/19 18:53 Rocephin 1 Gm/D5w 50 Ml IVPB Infused QPM NIKOS Infusion Insulin Aspart 2 - 5 units 12/12/19 08:00 12/14/19 12:16 Novolog SUB-Q 3 units TIDWM NIKOS Administration Protocol Insulin Lispro Protam/Lispro Human 30 units 12/12/19 09:00 12/14/19 08:53 Humalog Mix 75/25 Vial SUB-Q 30 units DAILY NIKOS Administration Insulin Lispro Protam/Lispro Human 37 units 12/12/19 00:25 12/13/19 17:55 Humalog Mix 75/25 Vial SUB-Q 37 units QPM NIKOS Administration Levothyroxine Sodium 75 mcg 12/12/19 06:30 12/14/19 05:59 Synthroid PO 75 mcg DAILY@0630 NIKOS Administration Magnesium Oxide 400 mg 12/12/19 09:00 09
[2019-12-14 14:00] VITALS: BP 106/46; PULSE 52; RESP 18; TEMP 37.1; O2SAT 92
[2019-12-14 16:34] LABS: SARS-CoV-2 RNA PCR Negative
[2019-12-14] MEDS: AMPICILLIN 1 GM/NS 50 ML 1 GM/50 ML BAG IVPB ×2 (16:45→20:15)
[2019-12-14] MEDS: RIVAROXABAN 20 MG TABLET PO (16:47)
[2019-12-14 17:42] LABS: Glucose Point of Care 262 (65-105)
--- NOTE | 2019-12-14 20:35 | CONS_ITS ---
DATE OF CONSULTATION: 12/14/2019 REASON FOR CONSULTATION: Streptococcus bacteremia. HISTORY OF PRESENT ILLNESS: A 69-year-old female with morbid obesity. She is resident of a care home apparently because she cannot take adequate care of herself at home. She was in her usual state of health until when she developed new onset at her care home of chills with rigors, temperature up to 39, and hypoxemia with shortness of breath. She was transferred here and admitted. She has been given piperacillin, ceftriaxone, and metronidazole at various times. She reports discoloration to the right leg for a number of months if not a year. She denies any recent trauma. She has had no ulcers elsewhere. She denies previous bloodstream infection. No further chills. ALLERGIES: NONE KNOWN. PRESENT MEDICATIONS: List reviewed. No immunosuppressants. HABITS: Quit smoking in 1969. No alcohol. PAST SURGICAL HISTORY: Cataracts. She has coronary stents. No other prosthetic devices in place, hysterectomy, BTL, knee surgery not involving implants. PAST MEDICAL HISTORY: Vitamin D deficiency, valvular heart disease, right-sided Tan palsy, peripheral vascular disease, peripheral neuropathy, PAF, overflow and stress incontinence, morbid obesity, hypothyroidism, hyperlipidemia, CO, GERD, DVT, diabetic nephropathy with appropriate diabetes control, depression, abnormal PFTs in June 2017, chronic back pain without acute worsening, stage III renal insufficiency by report. FAMILY HISTORY: Not pertinent to her present illness. SOCIAL HISTORY: Previously in assisted living, now in a care home. She has no family at the bedside. REVIEW OF SYSTEMS: Somewhat limited by the patient's memory. 14-point review is otherwise negative. PHYSICAL EXAMINATION: GENERAL: This is a middle-aged female, who appears her actual age. No acute distress. VITAL SIGNS: Shortly after arrival, she had a temperature of 38.8, has been afebrile 48 hours plus, 72, 16, 133/56, 90% to 94%. SKIN: Warm and dry. No suspicious skin lesions. HEENT: The pupils are equal, round, reactive to light. The conjunctivae are normal. The oropharynx, oral mucosa normal. NECK: No masses or thyromegaly. No meningismus. LUNGS: Clear to auscultation. BACK: No CVAT. CARDIAC: Regular rate and rhythm. No murmur, gallop, rub. ABDOMEN: Morbidly obese, nontender. No masses. No organomegaly. EXTREMITIES: She has anasarca. No clubbing. No cyanosis. No calf tenderness, venous varicosities, or petechiae. NEUROLOGIC: Awake, alert, oriented, appropriate. LABORATORY DATA: Blood cultures from admission, 2/2 sets, group G streptococcus. I reviewed the susceptibilities. White count 12.7 today and was 19.1 shortly after arrival, 20.1 on admission; hemoglobin down to 9; platelets are 230. Differential with a minimal left shift. She has hyponatremia. BUN 21, creatinine 1.2. Estimated GFR of 45. Accu-Cheks variable, 292 this morning with a glucose 163 on chemistry panel. CRP was 2. Liver function tests normal. Urinalysis, no evidence of infection. RADIOLOGICAL DATA: Chest x-ray, cardiomegaly. CT of the abdomen and pelvis, gallstones, umbilical hernia, cortical thickening, left kidney, diverticulosis. ASSESSMENT: 1. Group G streptococcus bacteremia with infection, due to cellulitis of the right distal anterior leg. Other sources are unlikely. I doubt that this is a contaminant. Other causes of the patient's fever are also unlikely. White blood cell count is declining. She has defervesced and she has received effective antibiotics at this time. 2. Mild renal insufficiency. 3. Diabetes mellitus, appears to be well controlled. 4. Morbid obesity. 5. Anasarca. I think fluid overloaded on c
[2019-12-14 20:40] LABS: Glucose Point of Care 243 (65-105)
[2019-12-14 21:49] VITALS: BP 116/46; PULSE 51; RESP 20; TEMP 36.1; O2SAT 93
[2019-12-15] VITALS (7 sets, daily range): BP systolic 142–156; BP diastolic 58–63; PULSE 62–84; RESP 18–20; TEMP 36.5–36.6; O2SAT 90–94
--- NOTE | 2019-12-15 | ECHO_ITS ---
Patient Info Name: Estefanía James Age: 69 years : 1950 Gender: Female Ht: 61 in Wt: 253 lbs BSA: 2.30 m2 HR: 92 bpm BP: 142 / 63 mmHg Heart Rhythm: Sinus Rhythm Technical Quality: Good Exam Date: 12/15/2019 7:59 AM Exam Location: [facility] Patient Status: Inpatient Admit Date: 12/11/2019 Staff Ordering Physician: Tristen De Luna MD Central Supply Supervisor: Rangel Charles, CLARE, RT Attending Provider: Ilsa Jimenez DO Referring Physician: Calixto MCKEON; Exam Type: CA echo dop color flow w con Study Info Indications R65.20 - Severe sepsis without septic shock Complete two-dimensional, color flow and Doppler transthoracic echocardiogram is performed with contrast to opacify the left ventricle and to improve the deliniation of the left ventricle endocardial borders. Summary 1. Left ventricular chamber dimension is normal. 2. Left ventricular systolic function is hyperdynamic, estimated at >70%. 3. There is mildly increased left ventricular wall thickness. 4. Left ventricular septal wall motion is normal. 5. The left ventricular diastolic function is grade II diastolic dysfunction. 6. Left atrial chamber dimension is mildly enlarged. 7. There is mild aortic valve calcification. 8. The mitral valve has calcified leaflets and calcified annulus. 9. There is mild mitral valve regurgitation. 10. There is mild tricuspid valve regurgitation. 11. Severe pulmonary hypertension, estimated pulmonary arterial systolic pressure is 68 mmHg. 12. The valves are not well visulaized. While no vegetations are seen, they cannot be excluded by this study. Left Ventricle Left ventricular chamber dimension is normal. Left ventricular systolic function is hyperdynamic, estimated at >70%. There is mildly increased left ventricular wall thickness. Left ventricular septal wall motion is normal. The left ventricular diastolic function is grade II diastolic dysfunction. Right Ventricle Right ventricular chamber dimension is normal. Right ventricular systolic function is normal. Left Atria Left atrial chamber dimension is mildly enlarged. Right Atria Right atrial chamber dimension is normal. Atrial Septum Intact interatrial septum visualized by color flow imaging. Aortic Valve The aortic valve is probable trileaflet. There is no aortic valve sclerosis. There is no aortic valve stenosis. There is trace aortic valve regurgitation. There is mild aortic valve calcification. Pulmonic Valve The pulmonic valve is not well visualized. There is no pulmonic valve stenosis. There is trace pulmonic regurgitation. Mitral Valve The mitral valve has calcified leaflets and calcified annulus. There is no mitral valve stenosis. There is mild mitral valve regurgitation. Tricuspid Valve The tricuspid valve leaflets are normal. There is no significant tricuspid valve stenosis. There is mild tricuspid valve regurgitation. Severe pulmonary hypertension, estimated pulmonary arterial systolic pressure is 68 mmHg. Other Findings The valves are not well visulaized. While no vegetations are seen, they cannot be excluded by this study. Pericardium/Pleural The pericardium appears normal. There is no pericardial effusion. Inferior Vena Cava Dilated inferior vena cava with <50% collapse upon inspiration consistent with elevated right atrial pressure, 15 mmHg. Aorta The aortic root size at the sinus of Valsalva is normal. The prox ascending aorta size is n
[2019-12-15] MEDS: AMPICILLIN 1 GM/NS 50 ML 1 GM/50 ML BAG IVPB ×6 (00:48→21:06)
[2019-12-15] MEDS: LACTATED RINGERS 1,000 ML 125 ML IV CONT ×3 (04:39→22:36)
[2019-12-15] MEDS: HYDROcodone/acetaminophen (*CRX) 5-325 MG TABLET 1 TAB PO ×3 (05:14→20:46)
[2019-12-15] MEDS: BENZONATATE 100 MG CAPSULE 200 MG PO (05:18)
[2019-12-15] MEDS: LEVOTHYROXINE SODIUM 75 MCG TABLET PO (06:24)
[2019-12-15] MEDS: AMIODARONE HCL 200 MG TABLET PO (08:29)
[2019-12-15] MEDS: FERROUS SULFATE 324 MG TABLET PO (08:29)
[2019-12-15] MEDS: METOCLOPRAMIDE HCL 5 MG TABLET PO ×3 (08:29→16:56)
[2019-12-15] MEDS: amLODIPine BESYLATE 5 MG TABLET PO (08:29)
[2019-12-15] MEDS: CLOPIDOGREL BISULFATE 75 MG TABLET PO (08:30)
[2019-12-15] MEDS: FLUTICASONE PROPIONATE 0.05% NA SPR 16 GM BTL (*BKC) 2 SPRAY NASAL (08:30)
[2019-12-15] MEDS: CYANOCOBALAMIN 1,000 MCG TABLET 1000 MCG PO (08:30)
[2019-12-15] MEDS: PANTOPRAZOLE SOD SESQUIHYDRATE 20 MG TAB PO (08:31)
[2019-12-15] MEDS: MAGNESIUM OXIDE 400 MG TABLET PO ×2 (08:31→16:56)
[2019-12-15] MEDS: ROSUVASTATIN 10 MG TABLET 40 MG PO (08:31)
[2019-12-15] MEDS: GABAPENTIN 300 MG CAPSULE PO ×3 (08:31→16:55)
[2019-12-15] MEDS: VALSARTAN 160 MG TABLET 320 MG PO (08:31)
[2019-12-15] MEDS: PERFLUTREN LIPID MICROSPHERES 1.5 ML VIAL DILUTED TO 10 ML TOTAL VOLUME IV PUSH (08:38)
[2019-12-15 09:07] LABS: Glucose Point of Care 158 (65-105)
--- NOTE | 2019-12-15 12:14 | P.CDI_ITS ---
CDI Query Clarification Request -12/11 temp 101.9 and 102, WBC 20.1, and creatinine 1.7 -Both blood cultures drawn 12/10 growing grp G Streptococcus -Bacteremia,fever, leukocytosis, chronic venous stasis ulcer and ELIANE documented by hospitalist -Dr Grace has documented, grp G strep bacteremia with infection due to cellu litis of the right distal anterior leg. -[facility] definition of bacteremia is a nonspecific lab finding of bacteria in the blood. Please clarify source of bacteremia. <Elizabeth Arellano RN - Last Filed: 12/15/19 12:29> Provider Comments UNSURE PLEASE CHECK WITH DR TA OR DR GRACE <Arielle Campo MD - Last Filed: 12/20/19 18:06>
[2019-12-15] MEDS: DOCUSATE SODIUM 100 MG CAPSULE 200 MG PO (12:15)
[2019-12-15 12:45] LABS: Glucose Point of Care 135 (65-105)
--- NOTE | 2019-12-15 14:35 | WPDINFPN2 ---
Progress Note: A&P Assessment and Plan (1) Bacteremia: Code(s): R78.81 - Bacteremia Status: Acute Assessment and Plan: Grp G Strep bacteremia with infection, RLE skin source, stable. DM, poor control REC Ampicillin #2, another 2 days tentatively Subjective Date/time seen: 12/15/19 14:35 Interval history: no new complaints Exam Narrative: Exam Narrative: afebrile Const: General: no acute distress Skin: General skin exam: normal color and no rashes or lesions noted Other: focal erythema R hernandez Objective Data Vital Signs Vital Signs: Vital Signs - 24 hr 12/14/19 21:49 12/15/19 05:20 12/15/19 07:35 Temperature 36.1 C L 36.5 C Pulse Rate 51 L 62 Respiratory Rate 20 20 Blood Pressure 116/46 L 142/63 H Pulse Oximetry 93 94 94 12/15/19 08:29 12/15/19 09:15 12/15/19 10:04 Temperature Pulse Rate 84 Respiratory Rate Blood Pressure Pulse Oximetry 92 90 Intake/Output Intake/Output: Intake & Output 12/12/19 12/13/19 12/14/19 12/15/19 23:59 23:59 23:59 23:59 Intake Total 3180 4410 3740 2980 Output Total 750 1175 200 Balance 2430 4410 2565 2780 Meds/Results Medications: Active Medications Generic Name Dose Route Start Last Admin Trade Name Freq PRN Reason Stop Dose Admin Acetaminophen 650 mg 12/11/19 21:21 12/12/19 03:54 Tylenol Tablet PO 650 mg Q4H PRN Administration Mild Pain (1-3) or Fever Hydrocodone Bitart/Acetaminophen 1 tab 12/12/19 00:24 12/15/19 12:16 [place] 5-325 Mg PO 1 tab QID PRN Administration pain 7-10 Albuterol 4 puff 12/11/19 16:34 Proventil Hfa INHALATION Q1HR PRN Shortness Of Breath Amiodarone HCl 200 mg 12/12/19 08:00 12/15/19 08:29 Pacerone PO 200 mg DAILY@0800 NIKOS Administration Amlodipine Besylate 5 mg 12/12/19 09:00 12/15/19 08:29 Norvasc PO 5 mg DAILY NIKOS Administration Benzonatate 200 mg 12/12/19 00:24 12/15/19 05:18 Tessalon Perles PO 200 mg TID PRN Administration Cough Calcium Carbonate 500 mg 12/12/19 09:00 12/15/19 08:30 Os-Ric 500 +D Tablet PO 01/11/20 09:01 500 mg BID NIKOS Administration Clopidogrel Bisulfate 75 mg 12/12/19 09:00 12/15/19 08:30 Plavix PO 75 mg DAILY NIKOS Administration Cyanocobalamin 1,000 mcg 12/12/19 09:00 12/15/19 08:30 Vitamin B-12 Tab PO 01/11/20 09:01 1,000 mcg DAILY NIKOS Administration Docusate Sodium 200 mg 12/12/19 09:00 12/15/19 12:15 Colace Capsule PO 200 mg DAILY NIKOS Administration Ferrous Sulfate 324 mg 12/12/19 08:00 12/15/19 08:29 Ferrous Sulfate PO 324 mg DAILY@0800 NIKOS Administration Fluticasone Propionate 2 spray 12/12/19 09:00 12/15/19 08:30 Flonase 0.05% Nasal [place] NASAL 2 spray DAILY NIKOS Administration Gabapentin 300 mg 12/12/19 00:25 12/15/19 12:16 Neurontin PO 300 mg TID NIKOS Administration Glucagon 1 mg 12/11/19 21:21 Glucagon For Inj IM PRN PRN Hypoglycemia Protocol Glucose 15 gm 12/11/19 21:21 Glutose 15 PO PRN PRN Hypoglycemia Protocol Hydralazine HCl 10 mg 12/11/19 22:25 Apresoline Hcl Inj IV PUSH Q4H PRN SBP greater than 160 Lactated Ringer's 1,000 mls @ 125 mls/hr 12/11/19 21:25 12/15/19 13:19 Lr - Lactated Ringers Iv IV CONT 125 mls/hr .Q8H NIKOS Administration Ampicillin Sodium 1 gm in 50 mls @ 100 mls/hr 12/14/19 17:00 12/15/19 12:58 Ampicillin 1 Gm/Ns 50 Ml IVPB Infused Q4HR NIKOS Infusion Insulin Aspart 2 - 5 units 12/12/19 08:00 12/15/19 12:15 Novolog SUB-Q Not Given TIDWM [facility] Protocol Insulin Lispro Protam/Lispro Human 30 units 12/12/19 09:00 12/15/19 08:35 Humalog Mix 75/25 Vial SUB-Q 30 units DAILY NIKOS Administration Insulin Lispro Protam/Lispro Human 37 units 12/12/19 00:25 12/14/19 17:41 Humalog Mix 75/25 Vial SUB-Q 37 units QPM NIKOS Administration Levothyroxine Sodium 75 mcg
--- NOTE | 2019-12-15 14:35 | PM.IMPN ---
Progress Note: A&P Assessment and Plan (1) Bacteremia: Code(s): R78.81 - Bacteremia Status: Acute Assessment and Plan: Continue iv ampicillin day 2 , Dr Grace to decide antibiotic duration , Wcc is 12, rpt BC are pending, first set of BC is Group G strep (2) Diabetes mellitus with hyperglycemia: Code(s): E11.65 - Type 2 diabetes mellitus with hyperglycemia Status: Acute Assessment and Plan: SSI and patient own regime Accuchecks Sugars are 163 (3) Hypoxia: Code(s): R09.02 - Hypoxemia Status: Acute Assessment and Plan: ON RA, CXr ordered for carisa Am previous CXr showed cardiomegaly (4) Chronic cutaneous venous stasis ulcer: Code(s): I83.009 - Varicose veins of unspecified lower extremity with ulcer of unspecified site; L97.909 - Non-pressure chronic ulcer of unspecified part of unspecified lower leg with unspecified severity Status: Acute Assessment and Plan: Wound dressings (5) Fever: Code(s): R50.9 - Fever, unspecified Status: Resolved Assessment and Plan: Resolved after started IV abx (6) ELIANE (acute kidney injury): Code(s): N17.9 - Acute kidney failure, unspecified Status: Resolved Assessment and Plan: Creat is 1.2 (7) Leukocytosis: Code(s): D72.829 - Elevated white blood cell count, unspecified Status: Acute Assessment and Plan: Improving (8) Chronic pain of both knees: Code(s): M25.561 - Pain in right knee; M25.562 - Pain in left knee; G89.29 - Other chronic pain Status: Acute Assessment and Plan: Likely OA (9) Essential (primary) hypertension: Code(s): I10 - Essential (primary) hypertension Status: Acute Assessment and Plan: Well controlled (10) FDC (current) use of insulin: 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 (12) Chronic GERD: Code(s): K21.9 - Gastro-esophageal reflux disease without esophagitis Status: Acute Assessment and Plan: Continue PPI (13) Paroxysmal A-fib: Code(s): I48.0 - Paroxysmal atrial fibrillation Status: Acute Assessment and Plan: On Amiodarone and Plavix. Rate controlled (14) Immobility: Code(s): Z74.09 - Other reduced mobility Status: Acute Assessment and Plan: PT/ OT to help ambulate pt Subjective Date/time seen: 12/15/19 14:35 Interval history: 9 year old female known history of diabetes mellitus, obesity, hypertension, and chronic venous stasis ulcers admitted with redness around the R leg. Pt seen by ID started on IV abx to continue for now, course of ABX yet to be decided. No specific complaints today. Review of Systems Review of Systems: All systems reviewed & are unremarkable except as noted in HPI and below ROS unobtainable: Yes other (immobile sitting in chair ) Exam Const: General: other (Morbidly obese ) Neck: Neck: no lymphadenopathy and no JVD Resp: Effort & Inspection: normal respiratory effort and able to speak in complete sentences Auscultation: clear to auscultation bilaterally Cardio: Jugular venous distension: no JVD Rate: regular rate Rhythm: regular rhythm Heart sounds: S1 normal heart sound present and S2 normal heart sound present GI: Inspection: obesity Auscultation: normal bowel sounds Skin: Wounds: wounds noted (b/l le ulcers with dressing R leg more red ) Neuro: General: patient oriented x3 and no focal motor deficits Cranial nerves: Yes CN's II-XII intact bilaterally and Yes Equal, round and reactive pupils present Speech: normal speech Motor exam (neuro): 5/5 motor strength
[2019-12-15] MEDS: RIVAROXABAN 20 MG TABLET PO (16:56)
[2019-12-16] VITALS (8 sets, daily range): BP systolic 128–177; BP diastolic 48–63; PULSE 51–94; RESP 20; TEMP 36.4–36.8; O2SAT 90–94
[2019-12-16] MEDS: TIZANIDINE HCL 4 MG TABLET PO ×2 (01:16→21:07)
[2019-12-16] MEDS: AMPICILLIN 1 GM/NS 50 ML 1 GM/50 ML BAG IVPB ×6 (01:17→20:59)
[2019-12-16 02:25] LABS: Glucose Point of Care 219 (65-105)
[2019-12-16] MEDS: LEVOTHYROXINE SODIUM 75 MCG TABLET PO (05:29)
[2019-12-16 05:31] LABS: Hematocrit 28.4 % (37.0-47.0); Hemoglobin 8.7 g/dL (12.0-15.0); Mean Corpuscular HGB Conc 30.6 g/dl (32-36); Mean Platelet Volume 11.1 fl (7.4-10.4); Platelet Count Result 276 k/mm3 (150-375); Red Blood Count 3.34 M/mm3 (4.2-5.4); Red Cell Distribution Width 14.2 % (11.5-14.5); White Blood Count 11.3 K/mm3 (4.5-10.0)
[2019-12-16] MEDS: HYDROcodone/acetaminophen (*CRX) 5-325 MG TABLET 1 TAB PO ×2 (05:37→12:09)
[2019-12-16] MEDS: LACTATED RINGERS 1,000 ML 125 ML IV CONT (07:30)
[2019-12-16] MEDS: FERROUS SULFATE 324 MG TABLET PO (08:28)
[2019-12-16] MEDS: AMIODARONE HCL 200 MG TABLET PO (08:28)
[2019-12-16] MEDS: CLOPIDOGREL BISULFATE 75 MG TABLET PO (08:29)
[2019-12-16] MEDS: METOCLOPRAMIDE HCL 5 MG TABLET PO ×3 (08:29→17:06)
[2019-12-16] MEDS: amLODIPine BESYLATE 5 MG TABLET PO (08:29)
[2019-12-16] MEDS: MAGNESIUM OXIDE 400 MG TABLET PO ×2 (08:30→17:06)
[2019-12-16] MEDS: CYANOCOBALAMIN 1,000 MCG TABLET 1000 MCG PO (08:30)
[2019-12-16] MEDS: DOCUSATE SODIUM 100 MG CAPSULE 200 MG PO (08:30)
[2019-12-16] MEDS: GABAPENTIN 300 MG CAPSULE PO ×3 (08:30→17:06)
[2019-12-16] MEDS: FLUTICASONE PROPIONATE 0.05% NA SPR 16 GM BTL (*BKC) 2 SPRAY NASAL (08:30)
[2019-12-16] MEDS: PANTOPRAZOLE SOD SESQUIHYDRATE 20 MG TAB PO (08:31)
[2019-12-16] MEDS: ROSUVASTATIN 10 MG TABLET 40 MG PO (08:31)
[2019-12-16] MEDS: VALSARTAN 160 MG TABLET 320 MG PO (08:31)
[2019-12-16 09:05] LABS: Glucose Point of Care 156 (65-105)
[2019-12-16 09:05] LABS: Glucose Point of Care 174 (65-105)
[2019-12-16] MEDS: INSULIN ASPART (*BKC) 100 UNITS/ML SUB-Q ×2 (12:05→17:09)
--- NOTE | 2019-12-16 13:23 | WPDINFPN2 ---
Progress Note: A&P Assessment and Plan (1) Bacteremia: Code(s): R78.81 - Bacteremia Status: Acute Assessment and Plan: 1. Grp G Strep bacteremia with infection, RLE skin source, stable. Appears to have microbiologic cure. WBC declining 2. DM, poor control REC Ampicillin #3, at least 1 day more. Glycemic control. Subjective Date/time seen: 12/16/19 13:23 Interval history: proximal thigh discomfort. Wounds just dressed, discussed appearance with RN Exam Narrative: Exam Narrative: afebrile Const: General: no acute distress Eyes: General: appearance normal, both eyes and all related structures Resp: Auscultation: clear to auscultation bilaterally Cardio: Rate: regular rate Rhythm: regular rhythm Heart sounds: no gallops GI: Inspection: non-distended GI Palp: Yes Soft to palpation and No Tenderness to palpation present (GI) Skin: General skin exam: normal color and no rashes or lesions noted Objective Data Vital Signs Vital Signs: Vital Signs - 24 hr 12/15/19 14:00 12/15/19 22:00 12/16/19 06:00 Temperature 36.6 C 36.6 C 36.8 C Pulse Rate 63 71 51 L Respiratory Rate 18 20 20 Blood Pressure 155/63 H 156/58 H 128/55 L Pulse Oximetry 90 90 90 12/16/19 07:35 12/16/19 08:28 12/16/19 09:49 Temperature Pulse Rate 94 Respiratory Rate Blood Pressure Pulse Oximetry 91 90 Intake/Output Intake/Output: Intake & Output 12/13/19 12/14/19 12/15/19 12/16/19 23:59 23:59 23:59 23:59 Intake Total 4410 3740 4660 1540 Output Total 1175 700 400 Balance 4410 2565 3960 1140 Meds/Results Medications: Active Medications Generic Name Dose Route Start Last Admin Trade Name Freq PRN Reason Stop Dose Admin Acetaminophen 650 mg 12/11/19 21:21 12/12/19 03:54 Tylenol Tablet PO 650 mg Q4H PRN Administration Mild Pain (1-3) or Fever Hydrocodone Bitart/Acetaminophen 1 tab 12/12/19 00:24 12/16/19 12:09 Taylor 5-325 Mg PO 1 tab QID PRN Administration pain 7-10 Albuterol 4 puff 12/11/19 16:34 Proventil Hfa INHALATION Q1HR PRN Shortness Of Breath Amiodarone HCl 200 mg 12/12/19 08:00 12/16/19 08:28 Pacerone PO 200 mg DAILY@0800 NIKOS Administration Amlodipine Besylate 5 mg 12/12/19 09:00 12/16/19 08:29 Norvasc PO 5 mg DAILY NIKOS Administration Benzonatate 200 mg 12/12/19 00:24 12/15/19 05:18 Tessalon Perles PO 200 mg TID PRN Administration Cough Calcium Carbonate 500 mg 12/12/19 09:00 12/16/19 08:29 Os-Ric 500 +D Tablet PO 01/11/20 09:01 500 mg BID NIKOS Administration Clopidogrel Bisulfate 75 mg 12/12/19 09:00 12/16/19 08:29 Plavix PO 75 mg DAILY NIKOS Administration Cyanocobalamin 1,000 mcg 12/12/19 09:00 12/16/19 08:30 Vitamin B-12 Tab PO 01/11/20 09:01 1,000 mcg DAILY NIKOS Administration Docusate Sodium 200 mg 12/12/19 09:00 12/16/19 08:30 Colace Capsule PO 200 mg DAILY NIKOS Administration Ferrous Sulfate 324 mg 12/12/19 08:00 12/16/19 08:28 Ferrous Sulfate PO 324 mg DAILY@0800 NIKOS Administration Fluticasone Propionate 2 spray 12/12/19 09:00 12/16/19 08:30 Flonase 0.05% Nasal [place] NASAL 2 spray DAILY NIKOS Administration Gabapentin 300 mg 12/12/19 00:25 12/16/19 12:08 Neurontin PO 300 mg TID NIKOS Administration Glucagon 1 mg 12/11/19 21:21 Glucagon For Inj IM PRN PRN Hypoglycemia Protocol Glucose 15 gm 12/11/19 21:21 Glutose 15 PO PRN PRN Hypoglycemia Protocol Hydralazine HCl 10 mg 12/11/19 22:25 Apresoline Hcl Inj IV PUSH Q4H PRN SBP greater than 160 Lactated Ringer's 1,000 mls @ 125 mls/hr 12/11/19 21:25 12/16/19 07:30 Lr - Lactated Ringers Iv IV CONT 125 mls/hr .Q8H NIKOS Administration Ampicillin Sodium 1 gm in 50 mls @ 100 mls/hr 12/14/19 17:00 12/16/19 13:10 Ampicillin 1 Gm/Ns 50 Ml IVPB 100 mls/hr Q4HR NIKOS Administration Insulin
--- NOTE | 2019-12-16 13:53 | PM.IMPN ---
Progress Note: A&P Assessment and Plan (1) Bacteremia: Code(s): R78.81 - Bacteremia Status: Acute Assessment and Plan: Continue iv ampicillin day 3 , Dr Grace on aboard continue IV abx until tomorrow, Wcc is 11, rpt BC are negative to date, first set of BC is Group G strep (2) Diabetes mellitus with hyperglycemia: Code(s): E11.65 - Type 2 diabetes mellitus with hyperglycemia Status: Acute Assessment and Plan: SSI and patient own regime Accuchecks (3) Hypoxia: Code(s): R09.02 - Hypoxemia Status: Acute Assessment and Plan: ON RA, CXr ordered for carisa Am previous CXr showed cardiomegaly (4) Chronic cutaneous venous stasis ulcer: Code(s): I83.009 - Varicose veins of unspecified lower extremity with ulcer of unspecified site; L97.909 - Non-pressure chronic ulcer of unspecified part of unspecified lower leg with unspecified severity Status: Acute Assessment and Plan: Wound dressings (5) Fever: Code(s): R50.9 - Fever, unspecified Status: Resolved Assessment and Plan: Resolved after started IV abx (6) ELIANE (acute kidney injury): Code(s): N17.9 - Acute kidney failure, unspecified Status: Resolved Assessment and Plan: Creat is 1.2 from 12/13 rpt carisa (7) Leukocytosis: Code(s): D72.829 - Elevated white blood cell count, unspecified Status: Acute Assessment and Plan: Improving (8) Chronic pain of both knees: Code(s): M25.561 - Pain in right knee; M25.562 - Pain in left knee; G89.29 - Other chronic pain Status: Acute Assessment and Plan: Likely OA (9) Essential (primary) hypertension: Code(s): I10 - Essential (primary) hypertension Status: Acute Assessment and Plan: Well controlled (10) superintendent terminal (current) use of insulin: Code(s): Z79.4 - custodial (current) use of insulin Status: Acute Assessment and Plan: Continue home regimen + SSI (11) Morbid (severe) obesity due to excess calories: Code(s): E66.01 - Morbid (severe) obesity due to excess calories Status: Acute Assessment and Plan: Life style and diet modifications. (12) Chronic GERD: Code(s): K21.9 - Gastro-esophageal reflux disease without esophagitis Status: Acute Assessment and Plan: Continue PPI (13) Paroxysmal A-fib: Code(s): I48.0 - Paroxysmal atrial fibrillation Status: Acute Assessment and Plan: On Amiodarone and Plavix. Rate controlled (14) Immobility: Code(s): Z74.09 - Other reduced mobility Status: Acute Assessment and Plan: PT/ OT to help ambulate pt Subjective Date/time seen: 12/16/19 13:53 Interval history: 69 year old female known history of diabetes mellitus, obesity, hypertension, and chronic venous stasis ulcers admitted with redness around the R leg. Pt seen by ID started on IV abx to continue for now until tomorrow. No specific complaints today. Pt looks abit swollen facies arms and feet. Pt is doing some ambulation with PT/ OT. Hopeful DC carisa. Review of Systems Review of Systems: All systems reviewed & are unremarkable except as noted in HPI and below ROS unobtainable: Yes other (Swelling arms and feet and facies ) Exam Const: General: other (Morbidly obese ) Orientation/consciousness: patient oriented x3 Eyes: Pupils: Equal, round and reactive pupils present Neck: Neck: no lymphadenopathy and no JVD Lymphatic: no lymphadenopathy noted Resp: Effort & Inspection: normal respiratory effort and able to speak in complete sentences Auscultation: clear to auscultation bilaterally Cardio: Jugular venous distension: no JVD Rate: regular rate Rhythm: regular rhythm Heart sounds: S1 normal heart sound present and S2 normal heart sound present GI: Inspection: obesity Auscultation: normal bowel sounds Skin: Wounds: wounds noted (b/l le ulcers with
[2019-12-16] MEDS: RIVAROXABAN 20 MG TABLET PO (17:06)
[2019-12-16 17:36] LABS: Glucose Point of Care 247 (65-105)
[2019-12-16 17:36] LABS: Glucose Point of Care 217 (65-105)
[2019-12-16 23:18] LABS: Glucose Point of Care 234 (65-105)
[2019-12-17] MEDS: AMPICILLIN 1 GM/NS 50 ML 1 GM/50 ML BAG IVPB ×4 (00:50→12:27)
[2019-12-17] MEDS: LEVOTHYROXINE SODIUM 75 MCG TABLET PO (05:34)
[2019-12-17] MEDS: HYDROcodone/acetaminophen (*CRX) 5-325 MG TABLET 1 TAB PO ×2 (05:37→12:33)
[2019-12-17 06:00] VITALS: BP 140/65; PULSE 60; RESP 18; TEMP 37.1; O2SAT 91
[2019-12-17 06:05] LABS: Hematocrit 29.2 % (37.0-47.0); Hemoglobin 8.6 g/dL (12.0-15.0); Mean Corpuscular HGB Conc 29.5 g/dl (32-36); Mean Corpuscular Hemoglobin 25.5 pg (26-34); Mean Corpuscular Volume 86.6 fl (80-100); Mean Platelet Volume 11.1 fl (7.4-10.4); Platelet Count Result 327 k/mm3 (150-375); Red Blood Count 3.37 M/mm3 (4.2-5.4); Red Cell Distribution Width 14.2 % (11.5-14.5); White Blood Count 11.3 K/mm3 (4.5-10.0)
[2019-12-17 06:19] LABS: Anion Gap 4 mmol/L (8-16); Blood Urea Nitrogen 23 mg/dL (7-17); Calcium 9.4 mg/dL (8.4-10.2); Carbon Dioxide 30 mmol/L (22-30); Chloride 105 mmol/L (98-107); Estimated CRCL calculation 47 ml/min; Estimated Glomerular Filt Rate 45; Glucose 153 mg/dL (65-105); Potassium 4.6 mmol/L (3.4-5.0); Sodium 139 mmol/L (137-145)
[2019-12-17 08:42] VITALS: PULSE 60
[2019-12-17] MEDS: AMIODARONE HCL 200 MG TABLET PO (08:42)
[2019-12-17] MEDS: METOCLOPRAMIDE HCL 5 MG TABLET PO ×3 (08:43→17:18)
[2019-12-17] MEDS: VALSARTAN 160 MG TABLET 320 MG PO (08:43)
[2019-12-17] MEDS: CYANOCOBALAMIN 1,000 MCG TABLET 1000 MCG PO (08:43)
[2019-12-17] MEDS: MAGNESIUM OXIDE 400 MG TABLET PO ×2 (08:43→17:17)
[2019-12-17] MEDS: ROSUVASTATIN 10 MG TABLET 40 MG PO (08:43)
[2019-12-17] MEDS: PANTOPRAZOLE SOD SESQUIHYDRATE 20 MG TAB PO (08:44)
[2019-12-17] MEDS: FERROUS SULFATE 324 MG TABLET PO (08:44)
[2019-12-17] MEDS: CLOPIDOGREL BISULFATE 75 MG TABLET PO (08:44)
[2019-12-17] MEDS: GABAPENTIN 300 MG CAPSULE PO ×3 (08:44→17:17)
[2019-12-17] MEDS: amLODIPine BESYLATE 5 MG TABLET PO (08:44)
[2019-12-17] MEDS: FLUTICASONE PROPIONATE 0.05% NA SPR 16 GM BTL (*BKC) 2 SPRAY NASAL (08:46)
[2019-12-17] MEDS: DOCUSATE SODIUM 100 MG CAPSULE 200 MG PO (08:51)
[2019-12-17 09:58] LABS: Glucose Point of Care 154 (65-105)
[2019-12-17 10:19] VITALS: O2SAT 87
[2019-12-17 10:22] VITALS: O2SAT 93
[2019-12-17 12:50] LABS: Glucose Point of Care 199 (65-105)
--- NOTE | 2019-12-17 13:16 | WPDINFPN2 ---
Progress Note: A&P Assessment and Plan (1) Bacteremia: Code(s): R78.81 - Bacteremia Status: Acute Assessment and Plan: 1. Grp G Strep bacteremia with infection, RLE skin source, stable. Appears to have microbiologic cure. WBC same, indicative of resolving but not eradicated infection 2. DM, poor control, better as inpatient 3. Renal insufficiency REC Ampicillin #4, can switch to oral ampicillin, use 500 tid x 8 days. Ok home, will sign off. Subjective Date/time seen: 12/17/19 13:16 Interval history: no new complaints, hopes to go home Exam Narrative: Exam Narrative: afebrile Const: General: no acute distress Other: morbid obesity Eyes: General: appearance normal, both eyes and all related structures Skin: General skin exam: normal color, no rashes or lesions noted and erythema Extrem: General: edema and pedal edema Objective Data Vital Signs Vital Signs: Vital Signs - 24 hr 12/16/19 14:00 12/16/19 19:54 12/16/19 21:20 Temperature 36.8 C Pulse Rate 85 64 Respiratory Rate 20 Blood Pressure 132/63 177/54 H Pulse Oximetry 94 91 12/16/19 22:18 12/17/19 06:00 12/17/19 08:42 Temperature 36.4 C 37.1 C Pulse Rate 67 60 60 Respiratory Rate 20 18 Blood Pressure 133/48 L 140/65 Pulse Oximetry 94 91 12/17/19 10:19 12/17/19 10:22 Temperature Pulse Rate Respiratory Rate Blood Pressure Pulse Oximetry 87 L 93 Intake/Output Intake/Output: Intake & Output 12/14/19 12/15/19 12/16/19 12/17/19 23:59 23:59 23:59 23:59 Intake Total 3740 4660 3170 610 Output Total 7108 342 0590 Balance 2565 3960 8500 610 Meds/Results Medications: Active Medications Generic Name Dose Route Start Last Admin Trade Name Freq PRN Reason Stop Dose Admin Acetaminophen 650 mg 12/11/19 21:21 12/12/19 03:54 Tylenol Tablet PO 650 mg Q4H PRN Administration Mild Pain (1-3) or Fever Hydrocodone Bitart/Acetaminophen 1 tab 12/12/19 00:24 12/17/19 12:33 [place] 5-325 Mg PO 1 tab QID PRN Administration pain 7-10 Albuterol 4 puff 12/11/19 16:34 Proventil Hfa INHALATION Q1HR PRN Shortness Of Breath Amiodarone HCl 200 mg 12/12/19 08:00 12/17/19 08:42 Pacerone PO 200 mg DAILY@0800 NIKOS Administration Amlodipine Besylate 5 mg 12/12/19 09:00 12/17/19 08:44 Norvasc PO 5 mg DAILY NIKOS Administration Benzonatate 200 mg 12/12/19 00:24 12/15/19 05:18 Tessalon Perles PO 200 mg TID PRN Administration Cough Calcium Carbonate 500 mg 12/12/19 09:00 12/17/19 08:44 Os-Ric 500 +D Tablet PO 01/11/20 09:01 500 mg BID NIKOS Administration Clopidogrel Bisulfate 75 mg 12/12/19 09:00 12/17/19 08:44 Plavix PO 75 mg DAILY NIKOS Administration Cyanocobalamin 1,000 mcg 12/12/19 09:00 12/17/19 08:43 Vitamin B-12 Tab PO 01/11/20 09:01 1,000 mcg DAILY [facility] Administration Docusate Sodium 200 mg 12/12/19 09:00 12/17/19 08:51 Colace Capsule PO 200 mg DAILY [facility] Administration Ferrous Sulfate 324 mg 12/12/19 08:00 12/17/19 08:44 Ferrous Sulfate PO 324 mg DAILY@0800 NIKOS Administration Fluticasone Propionate 2 spray 12/12/19 09:00 12/17/19 08:46 Flonase 0.05% Nasal [place] NASAL 2 spray DAILY [facility] Administration Furosemide 40 mg 12/17/19 17:00 Lasix Tablet PO BID [facility] Gabapentin 300 mg 12/12/19 00:25 12/17/19 12:29 Neurontin PO 300 mg TID [facility] Administration Glucagon 1 mg 12/11/19 21:21 Glucagon For Inj IM PRN PRN Hypoglycemia Protocol Glucose 15 gm 12/11/19 21:21 Glutose 15 PO PRN PRN Hypoglycemia Protocol Hydralazine HCl 10 mg 12/11/19 22:25 Apresoline Hcl Inj IV PUSH Q4H PRN SBP greater than 160 Ampicillin Sodium 1 gm in 50 mls @ 100 mls/hr 12/14/19 17:00 12/17/19 12:27 Ampicillin 1 Gm/Ns 50 Ml IVPB 100 mls/hr Q4HR NIKOS Administration Insulin Aspart 2 - 5 units 12/12/19 08:0
[2019-12-17 13:21] LABS: SARS-CoV-2 RNA PCR Negative
[2019-12-17 14:00] VITALS: BP 140/50; PULSE 60; RESP 18; TEMP 36.7; O2SAT 94
[2019-12-17] MEDS: AMPICILLIN TRIHYDRATE 500 MG CAPSULE PO (14:03)
--- NOTE | 2019-12-17 16:14 | PM.DS ---
DS: Admitting Diagnosis Admitting Diagnosis Admitting Diagnosis: Leukocytosis, Acute kidney injury DS: Discharge Diagnosis Discharge Diagnosis (1) Bacteremia: Code(s): R78.81 - Bacteremia Status: Acute Assessment and Plan: Wcc is 11, rpt BC are negative to date, first set of BC is Group G strep oral ampicilin oral for 8 days three times a day (2) Diabetes mellitus with hyperglycemia: Code(s): E11.65 - Type 2 diabetes mellitus with hyperglycemia Status: Acute Assessment and Plan: SSI and patient own regime Accuchecks (3) Hypoxia: Code(s): R09.02 - Hypoxemia Status: Acute Assessment and Plan: ON RA,CXR shows mild pulmonary edema likely due to fluid hydration. Pts lasix has been increased to BID dosing, pt is off fluids now (4) Chronic cutaneous venous stasis ulcer: Code(s): I83.009 - Varicose veins of unspecified lower extremity with ulcer of unspecified site; L97.909 - Non-pressure chronic ulcer of unspecified part of unspecified lower leg with unspecified severity Status: Acute Assessment and Plan: Wound dressings (5) Fever: Code(s): R50.9 - Fever, unspecified Status: Resolved Assessment and Plan: Resolved after started IV abx (6) ELIANE (acute kidney injury): Code(s): N17.9 - Acute kidney failure, unspecified Status: Resolved Assessment and Plan: Creat is 1.2 (7) Leukocytosis: Code(s): D72.829 - Elevated white blood cell count, unspecified Status: Acute Assessment and Plan: Improving (8) Chronic pain of both knees: Code(s): M25.561 - Pain in right knee; M25.562 - Pain in left knee; G89.29 - Other chronic pain Status: Acute Assessment and Plan: Likely OA (9) Essential (primary) hypertension: Code(s): I10 - Essential (primary) hypertension Status: Acute Assessment and Plan: Well controlled (10) machine attendant (current) use of insulin: Code(s): Z79.4 - machine attendant (current) use of insulin Status: Acute Assessment and Plan: Continue home regimen + SSI (11) Morbid (severe) obesity due to excess calories: Code(s): E66.01 - Morbid (severe) obesity due to excess calories Status: Acute Assessment and Plan: Life style and diet modifications. (12) Chronic GERD: Code(s): K21.9 - Gastro-esophageal reflux disease without esophagitis Status: Acute Assessment and Plan: Continue PPI (13) Paroxysmal A-fib: Code(s): I48.0 - Paroxysmal atrial fibrillation Status: Acute Assessment and Plan: On Amiodarone and Plavix. Rate controlled (14) Immobility: Code(s): Z74.09 - Other reduced mobility Status: Acute Assessment and Plan: PT/ OT to help ambulate PT DS: Summary Time Spent with Patient Time attestation: Total time spent providing and/or coordinating discharge services:40 minutes on day of discharge Exam Const: General: other (Morbidly obese ) Orientation/consciousness: patient oriented x3 Eyes: Pupils: Equal, round and reactive pupils present Neck: Neck: no lymphadenopathy and no JVD Lymphatic: no lymphadenopathy noted Resp: Effort & Inspection: normal respiratory effort and able to speak in complete sentences Auscultation: clear to auscultation bilaterally Cardio: Jugular venous distension: no JVD Rate: regular rate Rhythm: regular rhythm Heart sounds: S1 normal heart sound present and S2 normal heart sound present GI: Inspection: obesity Auscultation: normal bowel sounds Skin: Wounds: wounds noted (b/l le ulcers with dressing R leg more red ) Neuro: General: patient oriented x3 and no focal motor deficits Cranial nerves: Yes CN's II-XII intact bilaterally and Yes Equal, round and reactive pupils present Speech: normal speech Motor exam (neuro): 5/5 motor strength present throughout Extrem: General: edema (arms, feet and
[2019-12-17] MEDS: FUROSEMIDE 40 MG TABLET PO (17:17)
[2019-12-17] MEDS: RIVAROXABAN 20 MG TABLET PO (17:17)
[2019-12-17 17:49] LABS: Glucose Point of Care 188 (65-105)
== END 2019-12-17 18:00 | DRG 603 ==
LOC: ANHED 21:21 → ANH3MEDSUR 12-12 00:32
PROVIDERS: Internal Medicine; Admitting Provider Internal Medicine; Emergency Provider Emergency Medicine; PCP Internal Medicine; Visit Provider Family Medicine
DX: L03.115 Cellulitis of right lower limb (principal); R78.81 Bacteremia; N17.9 Acute kidney failure, unspecified; Z68.42 Body mass index [BMI] 45.0-49.9, adult; L97.829 Non-pressure chronic ulcer of other part of left lower leg with unspecified severity; E11.622 Type 2 diabetes mellitus with other skin ulcer; Z20.828 Contact with and (suspected) exposure to other viral communicable diseases; R09.02 Hypoxemia; B95.4 Other streptococcus as the cause of diseases classified elsewhere; E11.65 Type 2 diabetes mellitus with hyperglycemia; D72.829 Elevated white blood cell count, unspecified; M25.561 Pain in right knee; M25.562 Pain in left knee; G89.29 Other chronic pain; M19.90 Unspecified osteoarthritis, unspecified site; I48.0 Paroxysmal atrial fibrillation; I10 Essential (primary) hypertension; I25.10 Atherosclerotic heart disease of native coronary artery without angina pectoris; E66.01 Morbid (severe) obesity due to excess calories; K21.9 Gastro-esophageal reflux disease without esophagitis; E55.9 Vitamin D deficiency, unspecified; E03.9 Hypothyroidism, unspecified; E11.42 Type 2 diabetes mellitus with diabetic polyneuropathy; E78.5 Hyperlipidemia, unspecified; E11.51 Type 2 diabetes mellitus with diabetic peripheral angiopathy without gangrene; I12.9 Hypertensive chronic kidney disease with stage 1 through stage 4 chronic kidney disease, or unspecified chronic kidney disease; N39.3 Stress incontinence (female) (male); E11.22 Type 2 diabetes mellitus with diabetic chronic kidney disease; N18.3 Chronic kidney disease, stage 3 (moderate); I87.2 Venous insufficiency (chronic) (peripheral); Z87.891 Personal history of nicotine dependence; I25.2 Old myocardial infarction; G47.33 Obstructive sleep apnea (adult) (pediatric); Z66 Do not resuscitate; Z79.02 Long term (current) use of antithrombotics/antiplatelets; Z79.01 Long term (current) use of anticoagulants; Z86.718 Personal history of other venous thrombosis and embolism; Z95.5 Presence of coronary angioplasty implant and graft; Z90.710 Acquired absence of both cervix and uterus; Z90.721 Acquired absence of ovaries, unilateral
CPT/HCPCS: 36415; 51701; 71045; 74176; 76705; 80048; 80053; 81001; 83605; 85025; 85027; 85610; 86140; 87040; 87147; 87186; 87635; 87804; 94762; 96361; 96365; 97161; 99285; A9270; C8929; C9803; J0290; J0696; J1815; J2543; J7120; Q9957; U0003

== ENCOUNTER 2020-03-07 22:47 | Emergency (ER) | payer MEDICARE, MEDICAID, SELFPAY ==
--- NOTE | ~2020-03-07 | XR_ITS ---
EXAMINATION: XR chest 1V portable EXAM DATE: 03/07/2020 23:55 INDICATION: cough. TECHNIQUE: Portable AP frontal chest x-ray was obtained. Comparison is made to prior examination from 12/17/2019. FINDINGS: There is cardiomegaly. Some ill-defined left perihilar edema or infection suspected. There is pulmonary vascular congestion. There is no pneumothorax suspected. There are no osseous abnormalit ies identified. IMPRESSION: 1. Cardiomegaly. 2. Ill-defined left perihilar edema or infection. Reviewed, dictated and finalized at location A. OPSYCHOLOGY SERVICE DIRECTOR
[2020-03-07 22:54] VITALS: BP 114/48; PULSE 68; RESP 16; TEMP 37.3; O2SAT 94
[2020-03-07 23:32] VITALS: BP 121/52; PULSE 64; RESP 13; O2SAT 93
--- NOTE | 2020-03-07 23:41 | ED.GENADULT ---
HPI - General Adult General Chief complaint: Unspecified <Breezy Bravo DO - Last Filed: 03/08/20 01:55> Stated complaint: low grade fever <Breezy Bravo DO - Last Filed: 03/08/20 01:55> Time Seen by Provider: 03/07/20 23:34 <Breezy Bravo DO - Last Filed: 03/08/20 01:55> Source: RN notes reviewed <Breezy Bravo DO - Last Filed: 03/08/20 01:55> History of Present Illness HPI narrative: Patient presents emergency department from [facility] for fever. Per the patient had a low-grade fever of 99.5 today and per the [facility] there is also noted that she has s hypoxia with a pulse ox of 75%. When EMS arrived the patient was awake and alert with oxygen saturations in the low 90s patient currently is being treated for a wound on her buttocks as well as to wounds on her left lower leg states she is not currently on antibiotics she currently denies any symptoms she denies any chest pain shortness of breath abdominal pain nausea vomiting or any other symptoms states she was sent for further evaluation <Breezy Bravo DO - Last Filed: 03/08/20 01:55> Related Data Home medications: Home Medications Medication Instructions Recorded Confirmed clopidogrel 75 mg tablet 75 mg PO DAILY 02/10/19 12/11/19 ergocalciferol (vitamin D2) 1,250 50,000 unit PO MONTHLY 02/10/19 12/11/19 mcg (50,000 unit) capsule gabapentin 300 mg capsule 300 mg PO TID 02/10/19 12/11/19 lancets #50 each 02/10/19 12/11/19 pen needle, diabetic 31 gauge x #30 each 02/10/19 12/11/19 1/4 rivaroxaban 20 mg tablet 20 mg PO DAILY 02/10/19 12/11/19 Humalog Mix 75-25(U-100)Insuln 30 unit SUBCUT DAILY 02/14/19 12/11/19 alendronate 70 mg PO WEEKLY 02/14/19 12/11/19 amiodarone 200 mg PO DAILY 02/14/19 12/11/19 amlodipine 5 mg PO DAILY 11/23/19 09/18/20 benzonatate 200 mg PO TID PRN 02/14/19 12/11/19 rosuvastatin 40 mg PO DAILY 02/14/19 12/11/19 tizanidine 4 mg PO HS PRN 02/14/19 12/11/19 valsartan 320 mg PO DAILY 02/14/19 12/11/19 acetaminophen 500 mg PO Q4H PRN 12/11/19 12/11/19 calcium carbonate-vitamin D3 1 tablet PO BID 12/11/19 12/11/19 docusate sodium 200 mg PO DAILY 12/11/19 12/11/19 fluticasone propionate [Allergy 2 spray INTRANASAL DAILY 12/11/19 12/11/19 Relief (fluticasone)] insulin lispro protamin-lispro 37 unit SUBCUT QPM 12/11/19 12/11/19 levothyroxine 75 mcg PO DAILY 12/11/19 12/11/19 mecobalamin (vitamin B12) 1,000 mcg SUBLINGUAL DAILY 12/11/19 12/11/19 metoclopramide HCl 5 mg PO TIDWM 12/11/19 12/11/19 pantoprazole 20 mg PO QAM 12/11/19 12/11/19 <Breezy Bravo DO - Last Filed: 03/08/20 01:55> Allergies/adverse reactions: Allergies Allergy/AdvReac Type Severity Reaction Status Date / Time No Known Allergies Allergy Verified 07/14/19 13:26 <Breezy Bravo DO - Last Filed: 03/08/20 01:55> Review of Systems Review of Systems: Narrative: Gen.: Denies fevers or chills ENT: Denies congestion Respiratory: Denies shortness of breath or cough CV: Denies chest pain or palpitations GI: Denies abdominal pain nausea, emesis or diarrhea denies burning, urgency, frequency or hematuria Musculoskeletal: Denies back pain or muscle pain Neuro: Denies numbness, tingling, weakness or focal weakness Skin: See HPI Except as documented, all other systems reviewed and negative <Breezy Bravo DO - Last Filed: 03/08/20 01:55> [facility] Past Medical History Medical History: Medical History Arthritis CAD (coronary artery disease) Chronic kidney disease, stage 3 with baseline creatinine between 1 and 1.2 Chronic lower back pain Chronic lung disease PFTs June 2017 consistent with early interstitial lung disease, emphysema, pulmonary vascular disease or questionable drug toxicity Depression Diabetes mellitus hemoglobin A1c 6.23 September 2018 Diabetic nephropathy DVT (deep venous thrombosis) on chronic anticoagulation with Xarelto GERD (gastroesoph
[2020-03-08] VITALS (15 sets, daily range): BP systolic 121–150; BP diastolic 51–73; PULSE 59–68; RESP 10–21; O2SAT 87–99
[2020-03-08 00:35] LABS: INR 3.2; Prothrombin Time 33.6 Seconds (11.1-14.7)
[2020-03-08 00:36] LABS: Partial Thromboplastin Time 62.8 SECONDS (22.3-36.8)
[2020-03-08 00:51] LABS: Alanine Aminotransferase 17 U/L (4-35); Albumin Level 3.3 g/dL (3.5-5.1); Alkaline Phosphatase 87 U/L (38-126); Anion Gap 2 mmol/L (8-16); Aspartate Amino Transferase 25 U/L (14-36); Bilirubin,Total 0.4 mg/dL (0.2-1.3); Blood Urea Nitrogen 27 mg/dL (7-17); Calcium 8.8 mg/dL (8.4-10.2); Carbon Dioxide 34 mmol/L (22-30); Chloride 98 mmol/L (98-107); Estimated CRCL calculation 35 ml/min; Estimated Glomerular Filt Rate 32; Glucose 117 mg/dL (65-105); Potassium 4.2 mmol/L (3.4-5.0); Sodium 134 mmol/L (137-145)
[2020-03-08 01:05] LABS: Basophils Percent Auto 0.6 % (0.2-1.2); Eosinophils Absolute Auto 0.2 K/mm3 (0-0.3); Eosinophils Percent Auto 2.4 % (0-4.4); Hematocrit 30.7 % (37.0-47.0); Hemoglobin 9.2 g/dL (12.0-15.0); Immature Granulocyte Absolute 0.19 K/mm3 (0.00-0.031); Lymphocytes Absolute Auto 1.25 K/mm3 (0.9-3.2); Lymphocytes Percent Auto 19.8 % (18.3-44.2); Mean Corpuscular Hemoglobin 24.8 pg (26-34); Mean Corpuscular Volume 82.7 fl (80-100); Mean Platelet Volume 10.2 fl (7.4-10.4); Monocytes Absolute Auto 0.7 K/mm3 (0.1-0.6); Monocytes Percent Auto 10.3 % (2.6-8.5); Neutrophils Percent Auto 63.9 % (45.5-73.1); Nucleated Red Blood Cells Absolute Auto 0.1 K/mm3 (0.0-0.012); Nucleated Red Blood Cells Perc 0.8 % (0.0-0.2); Platelet Count Result 324 k/mm3 (150-375); Red Blood Count 3.71 M/mm3 (4.2-5.4); Red Cell Distribution Width 18.9 % (11.5-14.5); White Blood Count 6.3 K/mm3 (4.5-10.0)
[2020-03-08] MEDS: SODIUM CHLORIDE 0.9% IV 1,000 ML 999 ML IV CONT (02:25)
[2020-03-08] MEDS: CEPHALEXIN 500 MG CAPSULE PO (02:25)
[2020-03-08 02:33] LABS: Add Urine Microscopic? YES; Appearance Urine Clear (Clear); Bacteria Urine Trace /hpf; Bilirubin Urine Negative (Negative); Blood Urine Negative (Negative); Color Urine Yellow (Yellow); Glucose Urine UA Negative (Negative); Ketones Urine Negative (Negative); Leukocyte Esterase Ur 1+ LEU/UL (Negative); Nitrate Urine Negative (Negative); Protein Urine 2+ mg/dL (Negative); Specific Grav Ur 1.011 (1.001-1.035); Urobilinogen Urine Negative mg/dL (<2.0); WBC Urine 51-75 /hpf
--- NOTE | 2020-03-08 03:30 | PC.NURSE ---
called [facility] to transport patient. ETA [id number]
--- NOTE | 2020-03-08 03:32 | PC.NURSE ---
called [facility] to request transport - declined
--- NOTE | 2020-03-08 03:35 | PC.NURSE ---
called [facility] to request transport. declined
--- NOTE | 2020-03-08 03:41 | PC.NURSE ---
called [facility] for transport. declined - they only have the 911 truck tonight
--- NOTE | 2020-03-08 06:13 | PC.NURSE ---
[facility] called and update ETA to [id number]
== END 2020-03-08 07:53 | disposition home or self-care (01) ==
PROVIDERS: Emergency Provider Emergency Medicine; PCP Internal Medicine
DX: L03.116 Cellulitis of left lower limb (principal); N39.0 Urinary tract infection, site not specified; N28.9 Disorder of kidney and ureter, unspecified; M19.90 Unspecified osteoarthritis, unspecified site; I25.10 Atherosclerotic heart disease of native coronary artery without angina pectoris; E11.22 Type 2 diabetes mellitus with diabetic chronic kidney disease; N18.30 Chronic kidney disease, stage 3 unspecified; E11.21 Type 2 diabetes mellitus with diabetic nephropathy; E11.42 Type 2 diabetes mellitus with diabetic polyneuropathy; E11.51 Type 2 diabetes mellitus with diabetic peripheral angiopathy without gangrene; K21.9 Gastro-esophageal reflux disease without esophagitis; Z86.718 Personal history of other venous thrombosis and embolism; Z79.4 Long term (current) use of insulin; J98.4 Other disorders of lung; I25.2 Old myocardial infarction; E78.5 Hyperlipidemia, unspecified; E03.9 Hypothyroidism, unspecified; E66.01 Morbid (severe) obesity due to excess calories; Z68.42 Body mass index [BMI] 45.0-49.9, adult; I48.0 Paroxysmal atrial fibrillation; Z79.01 Long term (current) use of anticoagulants; E55.9 Vitamin D deficiency, unspecified; I38 Endocarditis, valve unspecified; Z98.42 Cataract extraction status, left eye; Z98.41 Cataract extraction status, right eye; Z95.5 Presence of coronary angioplasty implant and graft; I51.7 Cardiomegaly
CPT/HCPCS: 36415; 51701; 71045; 80053; 81001; 83605; 85025; 85610; 85730; 87040; 87077; 87086; 87088; 87186; 96360; 99283; A9270; J7030

== ENCOUNTER 2020-10-22 00:34 | Emergency (ER) | payer MEDICARE, MEDICAID, SELFPAY ==
--- NOTE | ~2020-10-22 | CT_ITS ---
EXAMINATION: CT cervical spine wo con DATE: 10/22/2020 01:35 INDICATION: Neck pain TECHNIQUE: Computed tomography (CT) of the cervical spine was performed without intravenous contrast. The dose-length product (DLP) was 489.29 mGy-cm. Automated exposure control and iterative reconstruc tion technique were employed. COMPARISON: 05/30/2016 FINDINGS: There is no fracture, dislocation, or subluxation. The odontoid is intact. The vertebral clarisse dy heights are maintained. There is severe loss of intervertebral disc space height at all levels in thoracic spine. There is fusion of C2 and C3. Moderate to severe multilevel facet and uncovertebral j oint osteoarthritis is present. IMPRESSION: 1. Severe cervical spondylosis without acute findings or significant interval change. Reviewed, dictated and finalized at location A. IMPRESSION: 1. Severe cervical spondylosis without acute findings or significant interval caio blum
[2020-10-22 00:39] VITALS: BP 183/74; PULSE 64; RESP 20; TEMP 36.7; O2SAT 93
--- NOTE | 2020-10-22 01:16 | ECG_ITS ---
Measurements Intervals [place] Rate: 71 P: 28 IL: 259 QRS: 49 QRSD: 181 T: 24 QT: 506 QTc: 550 Interpretive Statements SINUS RHYTHM WITH FIRST DEGREE AV BLOCK RIGHT BUNDLE BRANCH BLOCK ABNORMAL ECG Electronically Signed On 10-22-2020 7:40:22 CDT by Robby Arredondo D.O.
--- NOTE | 2020-10-22 01:20 | ED.EXTPRO ---
HPI - Extremity Problem General Chief complaint: Extremity Problem,Nontraumatic Stated complaint: neck pain History of Present Illness HPI Narrative: 70 yo male w/ h/o chronic back pain presents to the ED for neck pain. She awoke from sleep with severe diffuse neck pain. Worse with movement. She is chronically on hydrocodone for back pain. No weakness, numbness. Related Data Home Medications Medication Instructions Recorded Confirmed clopidogrel 75 mg tablet 75 mg PO DAILY 02/10/19 12/11/19 ergocalciferol (vitamin D2) 1,250 50,000 unit PO MONTHLY 02/10/19 12/11/19 mcg (50,000 unit) capsule gabapentin 300 mg capsule 300 mg PO TID 02/10/19 12/11/19 lancets #50 each 02/10/19 12/11/19 pen needle, diabetic 31 gauge x #30 each 02/10/19 12/11/19/ rivaroxaban 20 mg tablet 20 mg PO DAILY 02/10/19 12/11/19 Humalog Mix 75-25(U-100)Insuln 30 unit SUBCUT DAILY 02/14/19 12/11/19 alendronate 70 mg PO WEEKLY 02/14/19 12/11/19 amiodarone 200 mg PO DAILY 02/14/19 12/11/19 amlodipine 5 mg PO DAILY 02/14/19 12/11/19 benzonatate 200 mg PO TID PRN 02/14/19 12/11/19 rosuvastatin 40 mg PO DAILY 02/14/19 12/11/19 tizanidine 4 mg PO HS PRN 02/14/19 12/11/19 valsartan 320 mg PO DAILY 02/14/19 12/11/19 acetaminophen 500 mg PO Q4H PRN 12/11/19 12/11/19 calcium carbonate-vitamin D3 1 tablet PO BID 12/11/19 12/11/19 docusate sodium 200 mg PO DAILY 12/11/19 12/11/19 fluticasone propionate [Allergy 2 spray INTRANASAL DAILY 12/11/19 12/11/19 Relief (fluticasone)] insulin lispro protamin-lispro 37 unit SUBCUT QPM 12/11/19 12/11/19 levothyroxine 75 mcg PO DAILY 12/11/19 12/11/19 mecobalamin (vitamin B12) 1,000 mcg SUBLINGUAL DAILY 12/11/19 12/11/19 metoclopramide HCl 5 mg PO TIDWM 12/11/19 12/11/19 pantoprazole 20 mg PO QAM 12/11/19 12/11/19 Allergies Allergy/AdvReac Type Severity Reaction Status Date / Time No Known Allergies Allergy Verified 10/22/20 00:51 Review of Systems Review of Systems: All systems reviewed & are unremarkable except as noted in HPI and below Constitutional: Constitutional: Denies fever(s) Cardiovascular: Cardiovascular: Denies chest pain Respiratory: Respiratory: Denies dyspnea Gastrointestinal: Gastrointestinal: Denies abdominal pain Musculoskeletal: Musculoskeletal: Reports back pain Neurologic: Denies numbness and Denies weakness PMFSH Past Medical History Medical History Arthritis CAD (coronary artery disease) Chronic kidney disease, stage 3 with baseline creatinine between 1 and 1.2 Chronic lower back pain Chronic lung disease PFTs June 2017 consistent with early interstitial lung disease, emphysema, pulmonary vascular disease or questionable drug toxicity Depression Diabetes mellitus hemoglobin A1c 6.23 September 2018 Diabetic nephropathy DVT (deep venous thrombosis) on chronic anticoagulation with Xarelto GERD (gastroesophageal reflux disease) Heart attack STEMI 2009 Heart murmur History of blood transfusion [place] DEE-NI' (hard of hearing) Hyperlipidemia Hypothyroidism Intellectual disability Morbid obesity Overflow stress urinary incontinence in female Paroxysmal atrial fibrillation on chronic anticoagulation with Xarelto Peripheral neuropathy PVD (peripheral vascular disease) Right-sided Tan's palsy Valvular heart disease Vitamin D deficiency (10/30/18) Wears glasses Surgical History Surgical History H/O bilateral cataract extraction H/O knee surgery H/O tubal ligation History of appendectomy History of cardiac cath stent x2 2009 with repeat cardiac catheterization April 2016 demonstrating recess stenosis of proximal LAD for which showed patient had another drug-eluting stent placed History of hysterectomy with oophorectomy with right oophorectomy March 2017 due to postmenopausal bleeding, previous left oophorectomy many years before that Family History Family History (Re
[2020-10-22] MEDS: diazePAM INJ (*CRX) 10 MG/2 ML SYRINGE 5 MG IM (01:54)
[2020-10-22 03:07] VITALS: BP 190/80; PULSE 88; RESP 24; O2SAT 94
== END 2020-10-22 03:04 ==
PROVIDERS: Emergency Provider Emergency Medicine; PCP Internal Medicine
DX: M54.2 Cervicalgia (principal); I25.10 Atherosclerotic heart disease of native coronary artery without angina pectoris; E11.22 Type 2 diabetes mellitus with diabetic chronic kidney disease; N18.30 Chronic kidney disease, stage 3 unspecified; E11.42 Type 2 diabetes mellitus with diabetic polyneuropathy; E11.51 Type 2 diabetes mellitus with diabetic peripheral angiopathy without gangrene; E11.21 Type 2 diabetes mellitus with diabetic nephropathy; I48.0 Paroxysmal atrial fibrillation; I25.2 Old myocardial infarction; E78.5 Hyperlipidemia, unspecified; I38 Endocarditis, valve unspecified; J98.4 Other disorders of lung; E03.9 Hypothyroidism, unspecified; E55.9 Vitamin D deficiency, unspecified; M19.90 Unspecified osteoarthritis, unspecified site; F79 Unspecified intellectual disabilities; E66.01 Morbid (severe) obesity due to excess calories; Z68.42 Body mass index [BMI] 45.0-49.9, adult; Z86.718 Personal history of other venous thrombosis and embolism; Z79.4 Long term (current) use of insulin; Z79.01 Long term (current) use of anticoagulants; Z98.42 Cataract extraction status, left eye; Z98.41 Cataract extraction status, right eye; Z95.5 Presence of coronary angioplasty implant and graft; Z87.891 Personal history of nicotine dependence; I44.0 Atrioventricular block, first degree; I45.10 Unspecified right bundle-branch block
CPT/HCPCS: 72125; 93005; 96372; 99284; J3360

== ENCOUNTER 2023-04-26 14:48 | Emergency (ER) | payer OTHER, SELFPAY ==
--- NOTE | ~2023-04-26 | XR_ITS ---
EXAMINATION: XR hip BI 2V w AP pelvis DATE: 04/26/2023 15:58 INDICATION: Fall from wheelchair TECHNIQUE: Anteroposterior view of the pelvis and anteroposterior and frog-leg lateral views of the l eft hip and anteroposterior and frog-leg lateral views of the right hip and were obtained. COMPARISON: CT dated 12/11/2019 FINDINGS: Evaluation mildly limited by underpenetration secondary to patient body habitus. Mild lumbar levocurv ature with moderate spondylosis. Normal alignment in the pelvis and bilateral hips. Mild bilateral hi p and sacroiliac osteoarthritis. IMPRESSION: 1. No acute osseous abnormality. Evaluation mildly limited by patient body habitus. Reviewed, dictated and finalized at location A. OR MAID IMPRESSION: 1. No acute osseous abnormality. Evaluation mildly limited by patient body habi tus.
--- NOTE | ~2023-04-26 | XR_ITS ---
EXAMINATION: XR knee LT 3V DATE: 04/26/2023 15:31 INDICATION: Left knee pain post fall TECHNIQUE: Anteroposterior, oblique and crosstable lateral views of the left knee were obtained COMPARISON: None. FINDINGS: No fracture. Tricompartmental osteoarthritis of the right knee, advanced medial compartment with violet deling of the articular surface at the medial side of the medial tibial plateau. Secondary minimal ge nu varus and 5 mm lateral subluxation of the tibial plateau relative to the femoral condyles. No left knee joint effusion. Enthesophytes at the proximal distal poles of the patella. Subcutaneous edema a bout the distal thigh and proximal calf. . IMPRESSION: 1. Tricompartmental osteoarthritis of the left knee advanced at the medial compartment. No fracture o r knee joint effusion. Reviewed, dictated and finalized at location A. FITTER IMPRESSION: 1. Tricompartmental osteoarthritis of the left knee advanced at the medial comp artment. No fracture or knee joint effusion.
--- NOTE | ~2023-04-26 | XR_ITS ---
EXAMINATION: XR knee RT 3V DATE: 04/26/2023 15:31 INDICATION: Right knee pain post fall from wheelchair TECHNIQUE: Anteroposterior, oblique and crosstable lateral views of the right knee were obtained COMPARISON: None. FINDINGS: Evaluation mildly limited by combination of osteopenia and patient body habitus. No evident fracture. Tricompartmental osteoarthritis with severe joint space narrowing in the medial compartment with leatha e likely early remodeling of the medial tibial plateau. There is at least mild osteoarthritis in the lateral and patellofemoral compartments. There is secondary mild genu varus and approximately 5 mm la teral subluxation of the tibial plateau relative to the femoral condyles. No joint effusion/layering lipohemarthrosis. Diffuse subcutaneous edema about the visualized distal thigh and proximal calf. Sma ll ovoid calcification likely either heterotopic ossicle or phlebolith in the soft tissues anterior t o the proximal tibia. IMPRESSION: 1. No right knee joint effusion or acute osseous abnormality. 2. Severe medial compartment predominant tricompartmental osteoarthritis at the right knee. Reviewed, dictated and finalized at location A. OR ECONOMIST
[2023-04-26 14:50] VITALS: BP 108/52; PULSE 75; RESP 20; TEMP 36.4; O2SAT 97
--- NOTE | 2023-04-26 15:42 | ED.FALL ---
HPI - Fall General Chief Complaint: Fall Stated Complaint: knee pain Time Seen by Provider: 04/26/23 15:06 Source: patient Mode of arrival: EMS Limitations: no limitations History of Present Illness HPI Narrative: patient is a 72-year-old female who presents the ED via EMS with report of a fall. Patient is a resident of [facility]. Per nursing report, the patient was attempting to transfer from her wheelchair to her bed this afternoon and fell. They state she slid out of her wheelchair and landed on her bottom on the ground. She states her knees buckled when she fell. She c/o pain to her leti knees, L > R. Denies any other injuries. Denies significant pain to hips. Denies HI or LOC. Patient is on Xarelto. Related Data Home Medications Medication Instructions Recorded Confirmed clopidogrel 75 mg tablet 75 mg PO DAILY 02/10/19 12/11/19 ergocalciferol (vitamin D2) 1,250 50,000 unit PO MONTHLY 02/10/19 12/11/19 mcg (50,000 unit) capsule gabapentin 300 mg capsule 300 mg PO TID 02/10/19 12/11/19 lancets #50 ea 02/10/19 12/11/19 pen needle, diabetic 31 gauge x #30 ea 02/10/19 12/11/1903/28 (Comfort EZ Pen [place]) rivaroxaban 20 mg tablet (Xarelto) 20 mg PO DAILY 02/10/19 12/11/19 alendronate 70 mg tablet 70 mg PO WEEKLY 02/14/19 12/11/19 amiodarone 200 mg tablet 200 mg PO DAILY 02/14/19 12/11/19 amlodipine 5 mg tablet 5 mg PO DAILY 02/14/19 12/11/19 benzonatate 200 mg capsule 200 mg PO TID PRN Cough 02/14/19 12/11/19 insulin lispro protamine-lispro 30 unit subcut DAILY 02/14/19 12/11/19 100 unit/mL (75-25) subcutaneous susp (Humalog Mix 75-25(U-100)Insuln) rosuvastatin 40 mg tablet 40 mg PO DAILY 02/14/19 12/11/19 tizanidine 4 mg tablet 4 mg PO HS PRN Muscle Spasm 02/14/19 12/11/19 valsartan 320 mg tablet 320 mg PO DAILY 02/14/19 12/11/19 acetaminophen 500 mg tablet 500 mg PO Q4H PRN Pain 12/11/19 12/11/19 calcium carbonate 600 mg-vitamin 1 tablet PO BID 12/11/19 12/11/19 D3 10 mcg (400 unit) tablet docusate sodium 100 mg capsule 200 mg PO DAILY 12/11/19 12/11/19 fluticasone propionate 50 2 spray intranasal DAILY 12/11/19 12/11/19 mcg/actuation nasal spray,suspension (Allergy Relief (fluticasone)) insulin lispro protamine-lispro 37 unit subcut QPM 12/11/19 12/11/19 100 unit/mL (75-25) subcutaneous pen levothyroxine 25 mcg tablet 75 mcg PO DAILY 12/11/19 12/11/19 mecobalamin (vitamin B12) 1,000 1,000 mcg sublingual DAILY 12/11/19 12/11/19 mcg disintegrating tablet,sublingual metoclopramide HCl 5 mg tablet 5 mg PO TIDWM 12/11/19 12/11/19 pantoprazole 20 mg tablet,delayed 20 mg PO QAM 12/11/19 12/11/19 release Allergies Allergy/AdvReac Type Severity Reaction Status Date / Time No Known Allergies Allergy Verified 04/26/23 15:43 Review of Systems Review of Systems: CONSTITUTIONAL: Denies fever, chills, or sweats. MUSCULOSKELETAL: See HPI. NEUROLOGIC: See HPI. All systems reviewed & are unremarkable except as noted in HPI and below PMFSH Past Medical History Medical History Arthritis CAD (coronary artery disease) Chronic kidney disease, stage 3 with baseline creatinine between 1 and 1.2 Chronic lower back pain Chronic lung disease PFTs June 2017 consistent with early interstitial lung disease, emphysema, pulmonary vascular disease or questionable drug toxicity Depression Diabetes mellitus hemoglobin A1c 6.23 September 2018 Diabetic nephropathy DVT (deep venous thrombosis) on chronic anticoagulation with Xarelto GERD (gastroesophageal reflux disease) Heart attack STEMI 2009 Heart murmur History of blood transfusion SUN'AQ (hard of hearing) Hyperlipidemia Hypothyroidism Intellectual disability Morbid obesity Overflow stress urinary incontinence in female Paroxysmal atrial fibrillation on chronic anticoagulation with Xarelto Peripheral neuropathy PVD (peripheral vascular disease) Right-sided [place]
[2023-04-26] MEDS: ACETAMINOPHEN 325 MG TABLET 650 MG PO (16:47)
[2023-04-26 17:51] VITALS: BP 115/49; PULSE 60; RESP 18; TEMP 36.4; O2SAT 99
[2023-04-26 20:07] VITALS: BP 110/79; PULSE 98; RESP 20; O2SAT 97
[2023-04-26 21:00] VITALS: BP 110/79; PULSE 85; RESP 15; TEMP 36.4; O2SAT 95
== END 2023-04-26 21:45 ==
PROVIDERS: Emergency Provider Physician Assistant
DX: S89.92XA Unspecified injury of left lower leg, initial encounter (principal); S89.91XA Unspecified injury of right lower leg, initial encounter; E11.22 Type 2 diabetes mellitus with diabetic chronic kidney disease; N18.30 Chronic kidney disease, stage 3 unspecified; E11.42 Type 2 diabetes mellitus with diabetic polyneuropathy; E11.21 Type 2 diabetes mellitus with diabetic nephropathy; E11.51 Type 2 diabetes mellitus with diabetic peripheral angiopathy without gangrene; I73.9 Peripheral vascular disease, unspecified; E78.5 Hyperlipidemia, unspecified; E03.9 Hypothyroidism, unspecified; I48.0 Paroxysmal atrial fibrillation; I38 Endocarditis, valve unspecified; I25.10 Atherosclerotic heart disease of native coronary artery without angina pectoris; I25.2 Old myocardial infarction; J98.4 Other disorders of lung; E55.9 Vitamin D deficiency, unspecified; E66.01 Morbid (severe) obesity due to excess calories; Z68.44 Body mass index [BMI] 60.0-69.9, adult; N39.490 Overflow incontinence; N39.3 Stress incontinence (female) (male); F79 Unspecified intellectual disabilities; Z66 Do not resuscitate; Z86.73 Personal history of transient ischemic attack (TIA), and cerebral infarction without residual deficits; Z86.718 Personal history of other venous thrombosis and embolism; Z87.891 Personal history of nicotine dependence; Z98.42 Cataract extraction status, left eye; Z98.41 Cataract extraction status, right eye; Z90.710 Acquired absence of both cervix and uterus; Z90.722 Acquired absence of ovaries, bilateral; Z79.01 Long term (current) use of anticoagulants; Z79.4 Long term (current) use of insulin; M17.0 Bilateral primary osteoarthritis of knee; W05.0XXA Fall from non-moving wheelchair, initial encounter
CPT/HCPCS: 73521; 73562; 99284; A9270

== ENCOUNTER 2023-04-27 05:34 | Emergency (ER) | payer OTHER, SELFPAY ==
[2023-04-27] VITALS (12 sets, daily range): BP systolic 88; BP diastolic 44; PULSE 20–34; RESP 13–21; TEMP 36.6; O2SAT 93–95
--- NOTE | 2023-04-27 05:36 | ECG_ITS ---
Measurements Intervals [place] Rate: 25 P: NE: 0 QRS: -46 QRSD: 188 T: 124 QT: 541 QTc: 353 Interpretive Statements SINUS BRADYCARDIA WITH HIGH GRADE AV BLOCK Electronically Signed On 04-27-2023 12:34:40 KNOCKER OUT by Jarrett Leyva M.D.
--- NOTE | 2023-04-27 05:44 | ED.SOB ---
HPI - SOB/Dyspnea General Chief Complaint: Shortness of Breath/Dyspnea <Laura Baltazar MD - Last Filed: 04/30/23 12:15> Stated Complaint: BRADYCARDIC, DIFFICULTY IN BREATHING <Laura Baltazar MD - Last Filed: 04/30/23 12:15> Time Seen by Provider: 04/27/23 05:42 <Laura Baltazar MD - Last Filed: 04/30/23 12:15> History of Present Illness HPI Narrative: Patient is a 72-year-old female presenting with respiratory distress. Patient was discharged from our facility last night after suffering a fall. Imaging was unremarkable so she was sent back to her nursing facility. They reportedly noticed around midnight that she was having difficulty breathing. They checked on her again this morning and she was minimally responsive and having more difficulty breathing. EMS was called at this point may found her to be hypoxic to the 60s and bradycardic in the 20s. Patient does have DNR DNI paperwork. On arrival, patient was intermittently responsive. Spoke with the patient's sister, Marina, who confirms that the patient does not want invasive measures. She does not want intubation. Discussed with the patient's sister that the patient is critically ill and would require invasive measures for stabilization. Patient's sister states that the patient would desire comfort measures and does not want to be in pain. <Laura Baltazar MD - Last Filed: 04/30/23 12:15> Related Data Home Medications: Home Medications Medication Instructions Recorded Confirmed clopidogrel 75 mg tablet 75 mg PO DAILY 02/10/19 12/11/19 ergocalciferol (vitamin D2) 1,250 50,000 unit PO MONTHLY 02/10/19 12/11/19 mcg (50,000 unit) capsule gabapentin 300 mg capsule 300 mg PO TID 02/10/19 12/11/19 lancets #50 ea 02/10/19 12/11/19 pen needle, diabetic 31 gauge x #30 ea 02/10/19 12/11/1903/28 (Comfort EZ Pen [place]) rivaroxaban 20 mg tablet (Xarelto) 20 mg PO DAILY 02/10/19 12/11/19 alendronate 70 mg tablet 70 mg PO WEEKLY 02/14/19 12/11/19 amiodarone 200 mg tablet 200 mg PO DAILY 02/14/19 12/11/19 amlodipine 5 mg tablet 5 mg PO DAILY 02/14/19 12/11/19 benzonatate 200 mg capsule 200 mg PO TID PRN Cough 02/14/19 12/11/19 insulin lispro protamine-lispro 30 unit subcut DAILY 02/14/19 12/11/19 100 unit/mL (75-25) subcutaneous susp (Humalog Mix 75-25(U-100)Insuln) rosuvastatin 40 mg tablet 40 mg PO DAILY 02/14/19 12/11/19 tizanidine 4 mg tablet 4 mg PO HS PRN Muscle Spasm 02/14/19 12/11/19 valsartan 320 mg tablet 320 mg PO DAILY 02/14/19 12/11/19 acetaminophen 500 mg tablet 500 mg PO Q4H PRN Pain 12/11/19 12/11/19 calcium carbonate 600 mg-vitamin 1 tablet PO BID 12/11/19 12/11/19 D3 10 mcg (400 unit) tablet docusate sodium 100 mg capsule 200 mg PO DAILY 12/11/19 12/11/19 fluticasone propionate 50 2 spray intranasal DAILY 12/11/19 12/11/19 mcg/actuation nasal spray,suspension (Allergy Relief (fluticasone)) insulin lispro protamine-lispro 37 unit subcut QPM 12/11/19 12/11/19 100 unit/mL (75-25) subcutaneous pen levothyroxine 25 mcg tablet 75 mcg PO DAILY 12/11/19 12/11/19 mecobalamin (vitamin B12) 1,000 1,000 mcg sublingual DAILY 12/11/19 12/11/19 mcg disintegrating tablet,sublingual metoclopramide HCl 5 mg tablet 5 mg PO TIDWM 12/11/19 12/11/19 pantoprazole 20 mg tablet,delayed 20 mg PO QAM 12/11/19 12/11/19 release <Laura Baltazar MD - Last Filed: 04/30/23 12:15> Allergies/Adverse Reactions: Allergies Allergy/AdvReac Type Severity Reaction Status Date / Time No Known Allergies Allergy Verified 04/26/23 15:43 <Laura Baltazar MD - Last Filed: 04/30/23 12:15> Review of Systems Review of Systems: ROS unobtainable: Yes unobtainable due to medical condition <Laura Baltazar MD - Last Filed: 04/30/23 12:15> [facility] Past Medical History Medical History: Medical History Arthritis CAD (coronary artery
[2023-04-27] MEDS: LORazepam INJ (*CRX) 2 MG/ML VIAL IV PUSH (05:49)
[2023-04-27] MEDS: MORPHINE SULFATE (*CRX) 4 MG/ML INJ IV PUSH (05:49)
[2023-04-27] MEDS: MORPHINE SULFATE (*CRX) 2 MG/ML INJ IV PUSH ×3 (06:20→07:23)
--- NOTE | 2023-04-27 06:51 | PC.NURSE ---
This RN spoke w pt sister, Marina, whom is POA regarding home preference. Sister states she does not know what she should do and needs time to think about home.
--- NOTE | 2023-04-27 07:12 | PC.NURSE ---
Report given to MARIYA Urbina at this time.
--- NOTE | 2023-04-27 08:00 | PC.NURSE ---
This RN called [facility] and spoke with Olga MERAZ and informed her that the pt had at [id number]
== END 2023-04-27 08:57 | disposition expired ==
PROVIDERS: Emergency Provider Emergency Medicine
DX: Z51.5 Encounter for palliative care (principal); R06.03 Acute respiratory distress; Z66 Do not resuscitate; E11.22 Type 2 diabetes mellitus with diabetic chronic kidney disease; N18.30 Chronic kidney disease, stage 3 unspecified; E11.42 Type 2 diabetes mellitus with diabetic polyneuropathy; E11.21 Type 2 diabetes mellitus with diabetic nephropathy; E11.51 Type 2 diabetes mellitus with diabetic peripheral angiopathy without gangrene; I73.9 Peripheral vascular disease, unspecified; E78.5 Hyperlipidemia, unspecified; E03.9 Hypothyroidism, unspecified; I48.0 Paroxysmal atrial fibrillation; I38 Endocarditis, valve unspecified; I25.10 Atherosclerotic heart disease of native coronary artery without angina pectoris; I25.2 Old myocardial infarction; J98.4 Other disorders of lung; E55.9 Vitamin D deficiency, unspecified; E66.01 Morbid (severe) obesity due to excess calories; Z68.44 Body mass index [BMI] 60.0-69.9, adult; N39.490 Overflow incontinence; N39.3 Stress incontinence (female) (male); F79 Unspecified intellectual disabilities; Z86.73 Personal history of transient ischemic attack (TIA), and cerebral infarction without residual deficits; Z86.718 Personal history of other venous thrombosis and embolism; Z87.891 Personal history of nicotine dependence; Z98.42 Cataract extraction status, left eye; Z98.41 Cataract extraction status, right eye; Z90.710 Acquired absence of both cervix and uterus; Z90.722 Acquired absence of ovaries, bilateral; Z79.01 Long term (current) use of anticoagulants; Z79.4 Long term (current) use of insulin; R00.1 Bradycardia, unspecified; I44.1 Atrioventricular block, second degree
CPT/HCPCS: 93005; 96374; 96375; 96376; 99284; J2060; J2270